=== PATIENT | female | born 1990 | race African-American/Black ===

== ENCOUNTER 2016-09-07 17:57 | Emergency (ER) | payer OTHER, MEDICAID ==
[~2016-09-07 17:57] MED LIST: AMOX875T PO; CIPR500T4 PO; FERR325T PO; IBUP-232 PO; IPRA0.03; LORTA5 PO; PRENCAP6 PO; STOO100C PO; ZOFR4TAB3 SL
[2016-09-07] MEDS ORDERED: ACETAMINOPHEN 325 MG TAB PO ONE (19:30)
--- NOTE | 2016-09-07 19:37 | PD ---
HPI Travel History International Travel<30 Days: No Contact w/Intl Traveler<30Days: No Known Affected Area: No History of Present Illness HPI This patient is a 26-year-old 1 para 0 EDC is September 16, 2016 presently at 38 weeks and 5 days she presents with the chief complaint of pain that originates in her left low back and radiates down her left leg described as pressure it began yesterday and from about 3-5 today's has increased and been constant she states that she's had the pain before and it comes and goes her abdomen occasionally gets tight no rupture of membranes no vaginal bleeding resting makes it better standing makes it worse care with Dr. Wil Schaffer course is significant for a history of trichomonas nausea and vomiting throughout the one-hour Glucola test previous bronchitis and a history of a blood transfusion History Past Medical History Narrative Medical Patient is allergic to Tegaderm and foam no known drug allergies Obstetric History Obstetric History First Past Surgical History Surgical History: No Previous Surgery Family History Family History: Negative Social History Alcohol Use: No Tobacco Use: No Substance Abuse: No Allergies-Medications (Allergen,Severity, Reaction): Uncoded Allergies: FOAM IV TEGRADERM (Allergy, Severe, ITCHING/REDNESS, 11/21/11) Home Meds Active Scripts Amoxicillin (Trimox 875 Mg Tab)875 Mg [id number] Mg PO Q12 10 Days Prov:Viridiana Glez 05/05/16 Ipratropium [place] (Nasal) (Ipratropium [place])0.03 % Spr2 [place] NA TID PRN ( NASAL CONGESTION) #1 SPR EACH NOSTRIL Prov:Viridiana Glez 05/05/16 Ciprofloxacin Hcl (Cipro)500 Mg Jce566 Mg PO BID #14 TAB Prov:Ebony Boyce MD 09/19/14 Ondansetron (Zofran ODT)4 Mg Tab4 Mg SL QID PRN (NAUSEA OR VOMITING) #4 TAB FOR NAUSEA/VOMITING Prov:Ebony Boyce MD 09/19/14 Ibuprofen (Motrin)600 Mg [id number] Mg PO QID #21 TAB GIVE WITH FOOD Prov:Ebony Boyce MD 09/19/14 Hydrocodone/Acetaminophen 5 mg/325 mg 1 Tab1 Tab PO Q6H PRN (PAIN) #15 TAB Prov:Soontharothai,Rewadee MD 09/19/14 Reported Medications Ferrous Sulfate (Iron)325 Mg [id number] Mg PO BID 05/05/16 Docusate Sodium (Colace)100 Mg Zwy279 Mg PO DAILY 05/05/16 Mv & Min W/Fe Fumarat ( 1) Cap1 Cap PO DAILY 05/05/16 Review of Systems Musculoskeletal: Other (as per history of present illness) Physical Exam Narrative GENERAL: Well-nourished, well-developed patient. Alert oriented 3 and cooperative in mild distress secondary to low back pain SKIN: Warm and dry. HEAD: Normocephalic and atraumatic. EYES: No scleral icterus. No injection or drainage. Conjunctiva are pink ENT: No nasal drainage noted. Mucous membranes pink. Airway patent. Mucous membranes are moist CARDIOVASCULAR: Regular rate and rhythm without murmurs, gallops, or rubs. RESPIRATORY: Breath sounds equal bilaterally. No accessory muscle use. ABDOMEN/GI: Abdomen soft, non-tender, bowel sounds present, no rebound, no guarding gravid consistent with 38 weeks no palpable contractions Gravid to [-] weeks size 38 Fundal Height: [-] GENITOURINARY: External Genitalia: intact and normal in appearance BUS glands: [-] Cervix: [-] Posterior soft Dilatation: [-] Fingertip Effacement: [-] Long Station: [-] Ballotable Presentation: [-] Vertex Membranes: [intact or ruptured] Uterine Contractions: [-] FHT's: Category: [-] 1 Baseline: [-] 140 Reactive: [-] Positive with accelerations up to 160 Variability: [-] Moderate nirk-lz-efyh variability Decels: [-] 0 EXTREMITIES: No cyanosis or edema. 2+ reflexes NEUROLOGICAL: Awake and alert. Motor and sensory grossly within normal limits. Five out of 5 muscle strength in all muscle groups. Normal speech. Equal strength bilaterally Data Data Vital Signs Reviewed: Yes (blood pressure 117/68 pulse 93 respiration 18 she is afebrile) Labs Bedside biophysical profile is done the amniotic fluid index is 12.8 Anterior grade 3 placenta Positive sustained breathing Positive flexion Positive tone Category 1 reactive tracing 10 out of 10 biophysical profile MDM Medical Record Reviewed: Yes Interpretation(s) 26-year-old at 38 weeks and 5 days Not in labor Musculoskeletal pain most likely pressure on the sciatic nerve by the vertex Plan Patient has been monitored she has a category 1 tracing Bedside ultrasound demonstrates a 10 out of 10 biophysical profile Neurologic exam is normal Plain Tylenol 6 50 Milligrams single dose Discharge patient home to keep her appointment with Dr. Pedroza on Friday Breasts elevated legs by mouth fluid hydration kick counts Signs of labor reviewed Diagnosis Diagnosis: Primary Impression: Musculoskeletal pain Additional Impression: with 38 completed weeks gestation Disposition: DISCHARGE HOME Condition: Stable Patient Instructions: General Instructions, Early Labor Signs (ED), Movement (ED), Abdominal Pain in (ED) Additional Instructions: DRINK PLENTY OF WATER DURING DAY, RETURN IF HAVING STRONG CONTRACTIONS, LEAKING FLUID, VAGINAL BLEEDING OR DECREASE IN BABY MOVING. FOLLOW UP WITH YOUR OB DR ON FRIDAY. KEEP ALL UPCOMING OB APPTS. Jeanine Larson MD Sep 07, 2016 19:37
== END 2016-09-07 19:38 | disposition home or self-care (01) ==
LOC: HOBED 17:57
DX: O26.893 Other specified pregnancy related conditions, third trimester (principal); M79.1 Myalgia; Z3A.33 33 weeks gestation of pregnancy
CPT/HCPCS: 59025; 76815

== ENCOUNTER 2016-09-09 22:37 | Emergency (ER) | payer OTHER, MEDICAID ==
--- NOTE | 2016-09-09 23:05 | PD ---
HPI Chief Complaint back pain Date Seen: Sep 09, 2016 Time Seen: 23:00 Travel History International Travel<30 Days: No Contact w/Intl Traveler<30Days: No Known Affected Area: No History of Present Illness HPI 26yo female at 39 weeks gestation here for left lumbar back pain x 1week. Was seen 2 days ago with similar complaints. Took tylenol earlier today without relief. Has appt tomorrow with OB. Denies contractions, vag bleeding, vag discharge. Para: 0 : 1 History Past Medical History Medical History: Denies Significant Hx Past Surgical History Surgical History: No Previous Surgery Family History Family History: Negative Social History Alcohol Use: No Tobacco Use: No Substance Abuse: No Allergies-Medications (Allergen,Severity, Reaction): Uncoded Allergies: FOAM IV TEGRADERM (Allergy, Severe, ITCHING/REDNESS, 11/21/11) Home Meds Active Scripts Amoxicillin (Trimox 875 Mg Tab)875 Mg [id number] Mg PO Q12 10 Days Prov:Viridiana Glez 05/05/16 Ipratropium [place] (Nasal) (Ipratropium [place])0.03 % Spr2 [place] NA TID PRN ( NASAL CONGESTION) #1 SPR EACH NOSTRIL Prov:Viridiana Glez 05/05/16 Ciprofloxacin Hcl (Cipro)500 Mg Nna700 Mg PO BID #14 TAB Prov:Ebony Boyce MD 09/19/14 Ondansetron (Zofran ODT)4 Mg Tab4 Mg SL QID PRN (NAUSEA OR VOMITING) #4 TAB FOR NAUSEA/VOMITING Prov:Ebony Boyce MD 09/19/14 Ibuprofen (Motrin)600 Mg Hob891 Mg PO QID #21 TAB GIVE WITH FOOD Prov:Ebony Boyce MD 09/19/14 Hydrocodone/Acetaminophen 5 mg/325 mg 1 Tab1 Tab PO Q6H PRN (PAIN) #15 TAB Prov:Ebony Boyce MD 09/19/14 Reported Medications Ferrous Sulfate (Iron)325 Mg Arm448 Mg PO BID 05/05/16 Docusate Sodium (Colace)100 Mg Zto907 Mg PO DAILY 05/05/16 Mv & Min W/Fe Fumarat ( 1) Cap1 Cap PO DAILY 05/05/16 Review of Systems Except as stated in HPI: all other systems reviewed are Neg Physical Exam Narrative GENERAL: Well-nourished, well-developed patient. SKIN: Warm and dry. HEAD: Normocephalic and atraumatic. EYES: No scleral icterus. No injection or drainage. ENT: No nasal drainage noted. Mucous membranes pink. Airway patent. NECK: Supple, trachea midline. No JVD. CARDIOVASCULAR: Regular rate and rhythm without murmurs, gallops, or rubs. RESPIRATORY: Breath sounds equal bilaterally. No accessory muscle use. BREASTS: Bilateral exam showed no masses , no retractions, no nipple discharge. ABDOMEN/GI: Abdomen soft, non-tender, bowel sounds present, no rebound, no guarding Gravid to [-] weeks size Fundal Height: [-]37 GENITOURINARY: External Genitalia: intact and normal in appearance BUS glands: [-]nl Cervix: [-]posterior Dilatation: [-] fingertip Effacement: [-] 50 Station: [-] -3 Presentation: [-]vertex Membranes: [intact or ruptured]intact Uterine Contractions: [-] no contractions per toco FHT's: Category: [-] 1 Baseline: [-] 140 Reactive: [-] mod Variability: [-] mod, accels present Decels: [-] absent EXTREMITIES: No cyanosis or edema. BACK: Nontender without obvious deformity. No CVA tenderness. NEUROLOGICAL: Awake and alert. Motor and sensory grossly within normal limits. Five out of 5 muscle strength in all muscle groups. Normal speech. Data Data Vital Signs Reviewed: Yes MDM Plan Will give Vistaril, discussed support belt follow up with OB as scheduled Diagnosis Diagnosis: Primary Impression: Musculoskeletal pain Additional Impression: 39 weeks gestation of Disposition: DISCHARGE HOME Ama Matute MD Sep 09, 2016 23:05
== END 2016-09-09 23:40 | disposition home or self-care (01) ==
LOC: HOBED 22:37
DX: O26.93 Pregnancy related conditions, unspecified, third trimester (principal); M79.1 Myalgia; Z3A.39 39 weeks gestation of pregnancy
CPT/HCPCS: 59025

== ENCOUNTER 2016-09-20 00:56 | Emergency (ER) | payer OTHER, MEDICAID ==
[~2016-09-20 00:56] MED LIST changes: -OXYC1TAB63 PO
[2016-09-20] MEDS ORDERED: PROMETHAZINE INJ 25 MG/ML VIAL IM ONE (01:30)
[2016-09-20] MEDS ORDERED: MEPERIDINE HCL 50 MG/ML VIAL IM ONE (01:30)
--- NOTE | 2016-09-20 01:30 | PD ---
HPI Chief Complaint Contraction pain Date Seen: Sep 20, 2016 Travel History International Travel<30 Days: No Contact w/Intl Traveler<30Days: No Known Affected Area: No History of Present Illness HPI Patient is 26-year-old black female at 40 weeks gestation [address] by [address] Schaffer for care who presents combining of contraction pains that are worsening today. Denies bleeding or rupture the membranes. Baby is active heart rate tracing is reactive and she is tonie every 2-3 minutes. Para: 0 : 1 History Past Surgical History Surgical History: No Previous Surgery Social History Alcohol Use: No Tobacco Use: No Substance Abuse: No Allergies-Medications (Allergen,Severity, Reaction): Uncoded Allergies: FOAM IV TEGRADERM (Allergy, Severe, ITCHING/REDNESS, 11/21/11) Home Meds Active Scripts Amoxicillin (Trimox 875 Mg Tab)875 Mg Qfj384 Mg PO Q12 10 Days Prov:Viridiana Glez 05/05/16 Ipratropium [place] (Nasal) (Ipratropium [place])0.03 % Spr2 [place] NA TID PRN ( NASAL CONGESTION) #1 SPR EACH NOSTRIL Prov:Viridiana Glez 05/05/16 Ciprofloxacin Hcl (Cipro)500 Mg Kzt325 Mg PO BID #14 TAB Prov:Ebony Boyce MD 09/19/14 Ondansetron (Zofran ODT)4 Mg Tab4 Mg SL QID PRN (NAUSEA OR VOMITING) #4 TAB FOR NAUSEA/VOMITING Prov:Ebony Boyce MD 09/19/14 Ibuprofen (Motrin)600 Mg Ysi869 Mg PO QID #21 TAB GIVE WITH FOOD Prov:Ebony Boyce MD 09/19/14 Hydrocodone/Acetaminophen 5 mg/325 mg 1 Tab1 Tab PO Q6H PRN (PAIN) #15 TAB Prov:Ebony Boyce MD 09/19/14 Reported Medications Ferrous Sulfate (Iron)325 Mg Dyj510 Mg PO BID 05/05/16 Docusate Sodium (Colace)100 Mg Cmt878 Mg PO DAILY 05/05/16 Mv & Min W/Fe Fumarat ( 1) Cap1 Cap PO DAILY 05/05/16 Review of Systems General / Constitutional: No: Fever, Weight Gain, Chills, Other Eyes: No: Diploplia, Blurred Vision, Visual changes, Pain, Photophobia HENT: No: Headaches, Vertigo, Lightheadedness Cardiovascular: No: Irregular Rhythm, Chest Pain or Discomfort, Palpitations, Tachycardia, Syncope, Varicosities, Edema, Cyanosis Respiratory: No: Cough, Short of Breath, Other Gastrointestinal: Abdominal Pain, No: Nausea, Vomiting, Diarrhea Genitourinary: No: Decreased Urinary Output, Oliguria Musculoskeletal: No: Limited ROM, Weakness, Cramping, Edema, Pain Skin: No Rash, No Itching, No Dryness, No Lumps, No Change in Pigmentation, No Change in Nails, No Alopecia, No Lesions Neurologic: No: Weakness, Dizziness, Syncope, Focal Abnormalities, Coordination Problem, Headache, Slurred Speech, Seizures Psychiatric: No: Depression, Suicidal Ideations, Homicidal Ideation Endocrine: No: Heat Intolerance, Cold Intolerance, Polydipsia, Polyuria, Other Physical Exam Narrative GENERAL: Well-nourished, well-developed patient. SKIN: Warm and dry. HEAD: Normocephalic and atraumatic. EYES: No scleral icterus. No injection or drainage. ENT: No nasal drainage noted. Mucous membranes pink. Airway patent. NECK: Supple, trachea midline. No JVD. CARDIOVASCULAR: Regular rate and rhythm without murmurs, gallops, or rubs. RESPIRATORY: Breath sounds equal bilaterally. No accessory muscle use. BREASTS: Bilateral exam showed no masses , no retractions, no nipple discharge. ABDOMEN/GI: Abdomen soft, non-tender, bowel sounds present, no rebound, no guarding Gravid to [40-] weeks size Fundal Height: [40-] GENITOURINARY: External Genitalia: intact and normal in appearance BUS glands: [-] Cervix: [-] Dilatation: [-1] Effacement: [60-] Station: [-3] Presentation: [-vtx] Membranes: [intact ] Uterine Contractions: [-q 3 min] FHT's: Category: [-1] Baseline: [133-] Reactive: [yes-] Variability: [-mod] Decels: [-none] EXTREMITIES: No cyanosis or edema. BACK: Nontender without obvious deformity. No CVA tenderness. NEUROLOGICAL: Awake and alert. Motor and sensory grossly within normal limits. Five out of 5 muscle strength in all muscle groups. Normal speech. [facility] Medical Record Reviewed: No Interpretation(s) This patient is 26-year-old black female at 40 weeks gestation presents clinically contractions. Denies bleeding or rupture the membranes baby's active heart rate tracing is reactive and she is tonie every 2-3 minutes. However cervix is only 1 cm 60% -3 station at this point. And this apparently is no change in her cervix over the last several exam she's had. Patient is currently not in labor and will treat with sedation and pain medication for Demerol 50 mg Phenergan 25 mg IM and the allow her to go home to [facility] home after pain medications are given, she is to return for increasing pain ruptured membranes or significant bleeding. She did have some spotting after her check of the cervix and sensory and she was informed that she may have a little bit of spotting when she wiped or went to the bathroom. Diagnosis Diagnosis: Primary Impression: False labor after 37 weeks of gestation without delivery Disposition: 01 DISCHARGE HOME Condition: Stable Cirilo Draper II, MD Sep 20, 2016 01:30
--- NOTE | 2016-09-20 01:50 | PD ---
HPI Chief Complaint 0130 Date Seen: Sep 20, 2016 Travel History International Travel<30 Days: No Contact w/Intl Traveler<30Days: No Known Affected Area: No History of Present Illness HPI Ms. Kay is a 26 yo G1 at 40 4/7 week (09/16/2016) patient of Dr. Schaffer who presents with complaint of contractions and possible rupture of membranes. Patient states that contractions began this morning negative gradually became more painful and become more close together. Patient reports normal movement. Patient does not report obvious ROM. Some vaginal spotting present in association with contractions; no vaginal bleeding reported. Patient reports constant back pain late during , but no recent increase. No shortness of breath, chest pain, nausea/vomiting, dysuria. Patient denies any complications this . Patient reportedly GBS negative. Patient reports recent cervical check with cervical dilation of 2 cm. Patient states that she has talked with her OB regarding possible induction 09/22 if she does not initiate labor spontaneously. Review of records: Prior transfusion in need for iron supplementation but hemoglobin WNL as of 01/2016. History of Trichomonas; subsequently negative after treatment. Records otherwise unremarkable. Para: 0 : 1 History Past Medical History Narrative Medical Per OB records: Trichomonas infection; repeat testing negative 05/2016 Blood transfusion for anemia several years prior; patient does not know reason for her transfusion Medical History: Denies Significant Hx Obstetric History Obstetric History G1 Past Surgical History Surgical History: No Previous Surgery Family History Family History: Negative Social History Alcohol Use: No Tobacco Use: No Substance Abuse: No Allergies-Medications (Allergen,Severity, Reaction): Uncoded Allergies: FOAM IV TEGRADERM (Allergy, Severe, ITCHING/REDNESS, 11/21/11) Home Meds Active Scripts Amoxicillin (Trimox 875 Mg Tab)875 Mg Aji490 Mg PO Q12 10 Days Prov:Viridiana Glez 05/05/16 Ipratropium [place] (Nasal) (Ipratropium [place])0.03 % Spr2 [place] NA TID PRN ( NASAL CONGESTION) #1 SPR EACH NOSTRIL Prov:Viridiana Glez 05/05/16 Ciprofloxacin Hcl (Cipro)500 Mg Iei162 Mg PO BID #14 TAB Prov:Ebony Boyce MD 09/19/14 Ondansetron (Zofran ODT)4 Mg Tab4 Mg SL QID PRN (NAUSEA OR VOMITING) #4 TAB FOR NAUSEA/VOMITING Prov:Ebony Boyce MD 09/19/14 Ibuprofen (Motrin)600 Mg Lrg132 Mg PO QID #21 TAB GIVE WITH FOOD Prov:Ebony Boyce MD 09/19/14 Hydrocodone/Acetaminophen 5 mg/325 mg 1 Tab1 Tab PO Q6H PRN (PAIN) #15 TAB Prov:Ebony Boyce MD 09/19/14 Reported Medications Ferrous Sulfate (Iron)325 Mg Qvo355 Mg PO BID 05/05/16 Docusate Sodium (Colace)100 Mg Hju200 Mg PO DAILY 05/05/16 Mv & Min W/Fe Fumarat ( 1) Cap1 Cap PO DAILY 05/05/16 Review of Systems General / Constitutional: No: Fever, Chills Eyes: No: Blurred Vision Cardiovascular: No: Chest Pain or Discomfort Respiratory: No: Short of Breath Gastrointestinal: No: Nausea, Vomiting Genitourinary: No: Urgency, Dysuria Musculoskeletal: Pain (abdominal pain with contractions) Physical Exam Narrative GENERAL: Well-nourished, well-developed patient. SKIN: Warm and dry. HEAD: Normocephalic and atraumatic. EYES: No scleral icterus. No injection or drainage. ENT: No nasal drainage noted. Mucous membranes pink. Airway patent. NECK: Supple, trachea midline. No JVD. CARDIOVASCULAR: Regular rate and rhythm without murmurs RESPIRATORY: Breath sounds equal bilaterally. No accessory muscle use. ABDOMEN/GI: Abdomen soft, non-tender, bowel sounds present, no rebound, no guarding Gravid EXTREMITIES: No cyanosis or edema. BACK: Nontender without obvious deformity. No CVA tenderness. NEUROLOGICAL: Awake and alert. Motor and sensory function grossly within normal limits. GENITOURINARY: Performed by Dr. Draper External Genitalia: intact and normal in appearance Cervix: Dilatation:1 Effacement: 60% Station: -3 Membranes: Intact Uterine Contractions: Y q3min FHT's: Category: 1 Baseline: 130 Reactive: Y Variability: Moderate Decels: None Data Data Vital Signs Reviewed: Yes Orders Vital Signs (Adult) .ON ADMISSION (09/20/16 01:23) ^ Labor Status (09/20/16 01:23) Promethazine Inj (Phenergan Inj) (09/20/16 01:30) Meperidine Inj (Demerol Inj) (09/20/16 01:30) MDM Medical Record Reviewed: Yes Narrative Course / MDM Ms. Kay is a 26 yo G1 at 40 4/7 week (09/16/2016) Assessment: Category 1 rhythm Contractions q 2-3 minutes Cervix 60/-3 Suspect early latent labor Plan: -Will give Demerol 50mg IM -Will give Phenergan 25mg IM -Will discharge patient home during latent labor; patient to return to OB ED with ROM or any significant bleeding Diagnosis Diagnosis: Primary Impression: False labor after 37 weeks of gestation without delivery Disposition: 01 DISCHARGE HOME Condition: Stable Patient Instructions: General Instructions, Early Labor Signs (ED), Movement (ED), Abdominal Pain in (ED) Departure Forms: Tests/Procedures Mika Smart MD R2 Sep 20, 2016 01:50
== END 2016-09-20 01:58 | disposition home or self-care (01) ==
LOC: HOBED 00:56
DX: O47.1 False labor at or after 37 completed weeks of gestation (principal); Z3A.40 40 weeks gestation of pregnancy
CPT/HCPCS: 59025; 84112; 96372; J2175; J2550

== ENCOUNTER 2016-09-20 18:01 | Inpatient (IN) | payer MEDICAID, OTHER ==
[2016-09-20] VITALS (36 sets, daily range): BP systolic 82–138; BP diastolic 34–112; PULSE 75–161; RESP 18
[2016-09-20] MEDS ORDERED: LACTATED RINGER'S 1000 ML INJ 1,000 ML IV PRN (19:01)
[2016-09-20] MEDS: LACTATED RINGER'S 1000 ML INJ 1,000 ML IV SCH (19:01)
[2016-09-20] MEDS ORDERED: MINERAL OIL 10 ML VIAL TOPICAL PRN (19:15)
[2016-09-20] MEDS ORDERED: LIDOCAINE HCL 1% 50 ML VIAL I-DERMAL PRN (19:15)
[2016-09-20] MEDS ORDERED: OXYTOCIN 30 UNITS-500ML PREMIX 500 ML IV ONE (19:15)
[2016-09-20] MEDS ORDERED: SODIUM CHLOR 0.9% 1000 ML INJ 1,000 ML IV PRN ×2 (19:15→19:21)
[2016-09-20] MEDS ORDERED: ZOLPIDEM TARTRATE 5 MG TAB PO PRN ×2 (19:15→21:00)
[2016-09-20] MEDS ORDERED: SODIUM CHLORID 0.9% 500 ML INJ 500 ML IV PRN (19:15)
[2016-09-20] MEDS ORDERED: CITRIC ACID-SODIUM CITRATE LIQ 30 ML UDC PO SCH (19:15)
[2016-09-20] MEDS ORDERED: LIDOCAINE HCL 1% 50 ML VIAL INFIL PRN (19:15)
[2016-09-20 19:19] LABS: AUTOMATED NEUTROPHIL # 8.4 TH/MM3 (1.8-7.7); BASOPHIL % 0.2 % (0.0-2.0); EOSINOPHIL # 0.1 TH/MM3 (0-0.4); EOSINOPHIL % 0.9 % (0.0-4.0); HEMATOCRIT 35.2 % (35.0-46.0); HEMO FLAGS DIFF FINAL; LYMPH % 14.7 % (9.0-44.0); LYMPHOCYTE # 1.6 TH/MM3 (1.0-4.8); MEAN CELL VOLUME 94.3 FL (80.0-100.0); MEAN CORPUSCULAR HEMOGLOBIN 31.3 PG (27.0-34.0); MEAN CORPUSCULAR HGB CONC 33.2 % (32.0-36.0); MONO % 7.3 % (0.0-8.0); NEUT % 76.9 % (16.0-70.0); PLATELET COUNT 310 TH/MM3 (150-450); RED BLOOD COUNT 3.73 MIL/MM3 (4.00-5.30); RED CELL DISTRIBUTION WIDTH 13.3 % (11.6-17.2); WHITE BLOOD COUNT 10.9 TH/MM3 (4.0-11.0)
[2016-09-20 19:25] LABS: BACTERIA, URINE OCC /hpf; BLOOD, URINE NEG (NEG); COMMENT (UR) CULTURE INDICATED; CULTURE IF INDICATED CULTURE INDICATED; GLUCOSE,URINE NEG (NEG); KETONE, URINE NEG (NEG); MUCUS URINE FEW /lpf (OCC); NITRITE,URINE NEG (NEG); SQUAMOUS EPITHELIAL CELL URINE <1 /hpf (0-5); URINE COLOR YELLOW (YELLW/STRAW)
[2016-09-20] MEDS ORDERED: OXYTOCIN 30 UNITS-500ML PREMIX 500 ML IV PRN (19:45)
[2016-09-20] MEDS: MISOPROSTOL 25 MCG SUPP VAGINAL SCH (20:00)
[2016-09-20] MEDS ORDERED: MISOPROSTOL 100 MCG TAB VAGINAL SCH (20:00)
[2016-09-20] MEDS ORDERED: fentaNYL 2MCG-BUPIV 0.125% INJ 100 ML ONE (20:26)
[2016-09-20] MEDS ORDERED: ePHEDrine/NS 25 MG/5 ML SYR ONE (22:56)
[2016-09-20] MEDS ORDERED: diphenhydrAMINE HCL 50 MG/ML VIAL IV PRN (23:00)
[2016-09-21] VITALS (42 sets, daily range): BP systolic 36–146; BP diastolic 18–88; PULSE 91–147; RESP 18–20; TEMP 98.1–100.8; O2SAT 95–96
[2016-09-21] MEDS: MISOPROSTOL 25 MCG SUPP VAGINAL SCH
[2016-09-21] MEDS: LACTATED RINGER'S 1000 ML INJ 1,000 ML IV SCH ×2 (03:01→07:50)
[2016-09-21] MEDS ORDERED: fentaNYL 2MCG-BUPIV 0.125% INJ 100 ML ONE ×2 (03:03→07:09)
[2016-09-21] MEDS ORDERED: ceFAZolin INJ 1,000 MG VIAL ONE (07:43)
[2016-09-21] MEDS ORDERED: OXYTOCIN 10 UNIT/ML AMP ONE (07:43)
[2016-09-21] MEDS ORDERED: DICLOFENAC SODIUM 37.5 MG/ML VIAL IV PUSH ONE (07:51)
[2016-09-21] MEDS ORDERED: OXYTOCIN 30 UNITS-500ML PREMIX 500 ML IV PRN ×2 (08:00→20:30)
[2016-09-21] MEDS ORDERED: ACETAMINOPHEN 1000 MG/100 ML VIAL IV ONE (08:08)
[2016-09-21] MEDS ORDERED: EPIDURAL-DIPHENHYDRAMINE HCL 50 MG/ML VIAL IV PUSH PRN (08:15)
[2016-09-21] MEDS ORDERED: EPIDURAL-NO SYSTEMIC NARCOTICS XX PRN (08:15)
[2016-09-21] MEDS ORDERED: EPIDURAL-DIPHENHYDRAMINE HCL 50 MG CAP PO PRN (08:15)
[2016-09-21] MEDS ORDERED: EPIDURAL-NALOXONE HCL 0.4 MG/ML AMP IV PRN (08:15)
[2016-09-21] MEDS ORDERED: EPIDURAL-DO NOT ADMINISTER ANTICOAGULANTS XX PRN (08:18)
[2016-09-21] MEDS ORDERED: ePHEDrine/NS 25 MG/5 ML SYR IV PRN (09:00)
[2016-09-21] MEDS ORDERED: DO NOT ADMINISTER ANTICOAGULANTS XX PRN (09:00)
[2016-09-21] MEDS: DICLOFENAC SODIUM 37.5 MG/ML VIAL IV PUSH SCH ×2 (09:00→17:00)
[2016-09-21] MEDS ORDERED: fentaNYL 2MCG-BUPIV 0.125% 100 ML EPIDURAL SCH (09:00)
[2016-09-21] MEDS ORDERED: NO SYSTEM NARCOTICS XX PRN (09:00)
[2016-09-21] MEDS ORDERED: MORPHINE SULFATE PF 5 MG/10 ML VIAL ONE (09:51)
[2016-09-21] MEDS ORDERED: ONDANSETRON HCL 4 MG/2 ML VIAL ONE (09:51)
--- NOTE | 2016-09-21 10:17 | MH ---
cc: Lauri GORDON MD DATE OF ADMISSION: 09/20/2016 REASON FOR ADMISSION Intrauterine postdate. HISTORY: Ms. Crowder is a 26-year-old black female para 0-0-0-0 who is at 40 weeks of 11/01 stays, she was measuring large in clinic and we sent her for a ultrasound at the center to be sure we were not having a large baby. The baby turned out to be 6-1/2 pounds. The perinatologist recommended delivery at this time. She was going to be induced on Friday night, however, because of their recommendations we are going to induce her now. She understands the risks and benefits and has agreed to proceed. Her past obstetrics history she is para 0-0-0-0 she does have a history of trichomonas back on 02/09, the most recent Pap smear was in late June and was negative. Her GBS is negative. PAST GYNECOLOGY HISTORY: Her past G[employer]ST[employer] history is negative. PAST MEDICAL HISTORY: Her past medical history is negative. PAST SURGICAL HISTORY: Past surgical history is negative. FAMILY HISTORY: Family history is negative. SOCIAL HISTORY She is single, she does not smoke, drink or take drugs. ALLERGIES TEGADERM MEDICATIONS current medications are Vitamins. REVIEW OF SYSTEMS She does not have any headaches, spots in front of her eyes. She has no shortness of breath or chest pain. She does have abdominal pain from the baby growing so large, she reports good movement. No rupture of membranes or bleeding. PHYSICAL EXAMINATION: IN GENERAL: Her physical exam, well-nourished female who is obviously gravid. VITAL SIGNS: Her blood pressure is 112/59. Her pulse is 96. Her respirations 18. HEAD, EYES, EARS, NOSE, AND THROAT: Normocephalic, atraumatic. NECK: The neck is supple. Trachea is midline. No thyromegaly or adenopathy. CHEST: The chest is clear to auscultation percussion. HEART: Heart has regular rate and rhythm without murmur. The abdomen is gravid. The fundal height is measuring 41. This baby seems a little large to me. The fundus is nontender. Her bladder is nontender. EXTREMITIES: She has mild lower extremity swelling. ASSESSMENT/PLAN Intrauterine at 40-1/2 weeks, for induction. Her cervix is 2 cm's and about 50% effaced. I think that she will be expecting a vaginal delivery. R. MD CALVIN Schofield/knig /8:16 AM /9:29 AM
[2016-09-21] MEDS ORDERED: SODIUM CHLORIDE 0.9% FLUSH 5 ML FLUSH IV PRN (10:30)
[2016-09-21] MEDS ORDERED: OXYTOCIN 30 UNITS-500ML PREMIX 500 ML IV ONE ×2 (10:30)
[2016-09-21] MEDS ORDERED: SIMETHICONE 80 MG CHEWABLE TAB PO PRN (10:30)
[2016-09-21] MEDS ORDERED: ONDANSETRON HCL 4 MG/2 ML VIAL IV PUSH PRN (10:30)
[2016-09-21] MEDS ORDERED: oxyCODONE/ACETAMINOPHEN 5 MG/325 MG TAB PO PRN (10:30)
[2016-09-21] MEDS ORDERED: LACTATED RINGER'S 1000 ML INJ 1,000 ML IV SCH (15:26)
[2016-09-21] MEDS ORDERED: ZOLPIDEM TARTRATE 5 MG TAB PO PRN (21:00)
--- NOTE | 2016-09-21 21:47 | MP ---
cc: Lauri SCHAFFER MD DATE OF SURGERY 09/21/16 PREOPERATIVE DIAGNOSIS 1. Intrauterine at 40 1/2 weeks 2. Failure to progress 3. Non-reassuring strip 4. Probable chorioamnionitis POSTOPERATIVE DIAGNOSIS 1. Intrauterine at 40 1/2 weeks 2. Failure to progress 3. Non-reassuring strip 4. Probable chorioamnionitis PROCEDURE Primary low transverse section. ANESTHESIA Epidural SURGEON Lauri Schaffer MD FINDINGS A normal male . Weight was 7-10 and good Apgars. The tubes, the uterus and the ovaries were all normal. COMPLICATIONS None. COUNTS Correct. ESTIMATED BLOOD LOSS 600 mL FLUIDS Crystalloid DISPOSITION The patient tolerated the procedure well, went to recovery room in good condition. INDICATIONS FOR PROCEDURE This patient was being induced last night per perinatology because of variable decelerations even though she had a good biophysical profile. She was 40-1/2 weeks. We proceeded with a Cytotec last night and began Pitocin this morning. She continued to have some variables, but she was not moving her cervix. She spiked a fever of 101.2 and, at this point because of the combination of failure to progress and fever, we decided to proceed with a section. PROCEDURE IN DETAIL Under an adequate level of anesthesia, she was prepped and draped for abdominal surgery. A Pfannenstiel incision was made and carried down to the fascia. The fascia was taken off the rectus muscle by blunt and sharp dissection. The rectus muscles were spread bluntly and the peritoneum was entered under direct vision without difficulty. The incision was extended with care to avoid the urinary bladder. A bladder blade was placed and a bladder flap created in the usual fashion. The uterine incision was made in a transverse manner along the lower uterine segment which was now well-developed. It was taken down in the midline until the intrauterine cavity was entered. A large amount of clear fluid was noted. The vertex was grasped with a suction cup and delivered. The hypopharynx and nasopharynx were suctioned and the remainder of the infant delivered without difficulty. The cord was doubly clamped and cut and the infant handed to the resuscitation team present. The placenta was then delivered manually. The uterus was curettaged twice with a wet lap and irrigated with a large amount of fluid. The uterine incision was then repaired with 2-0 Vicryl in a running locking fashion, with the second layer imbricating the first. Hemostasis was excellent. The cul-de-sac and gutters were cleaned of blood and debris. The uterus was delivered back into the abdomen. The rectus muscles were reapproximated with 0 Vicryl in interrupted fashion. The fascia was repaired from lateral to midline with 0 Vicryl and the subcu was repaired with 3-0 Vicryl. The skin was repaired with a 4-0 Vicryl in a subcuticular manner. The wound was sterilely dressed. She tolerated the procedure well and went to the recovery room in satisfactory condition. R. MD CALVIN Schofield/ /10:29 AM /9:30 PM
[2016-09-21] MEDS: IBUPROFEN 600 MG TAB PO PRN (23:33)
[2016-09-22] MEDS: DICLOFENAC SODIUM 37.5 MG/ML VIAL IV PUSH SCH (00:36)
[2016-09-22 03:00] VITALS: BP 110/65; PULSE 105; RESP 18; TEMP 98.4
[2016-09-22] MEDS: IBUPROFEN 600 MG TAB PO PRN ×3 (06:08→19:54)
[2016-09-22 06:57] LABS: AUTOMATED NEUTROPHIL # 15.5 TH/MM3 (1.8-7.7); BASOPHIL # 0.1 TH/MM3 (0-0.2); BASOPHIL % 0.3 % (0.0-2.0); EOSINOPHIL # 0.1 TH/MM3 (0-0.4); EOSINOPHIL % 0.5 % (0.0-4.0); HEMO FLAGS DIFF FINAL; LYMPH % 10.6 % (9.0-44.0); LYMPHOCYTE # 2.1 TH/MM3 (1.0-4.8); MEAN CELL VOLUME 94.7 FL (80.0-100.0); MEAN CORPUSCULAR HEMOGLOBIN 31.5 PG (27.0-34.0); MEAN CORPUSCULAR HGB CONC 33.3 % (32.0-36.0); MONO % 9.5 % (0.0-8.0); NEUT % 79.1 % (16.0-70.0); PLATELET COUNT 245 TH/MM3 (150-450); RED BLOOD COUNT 2.32 MIL/MM3 (4.00-5.30); RED CELL DISTRIBUTION WIDTH 13.3 % (11.6-17.2); WHITE BLOOD COUNT 19.6 TH/MM3 (4.0-11.0)
[2016-09-22 08:15] VITALS: BP 116/83; PULSE 114; RESP 16; TEMP 98
[2016-09-22] MEDS: oxyCODONE/ACETAMINOPHEN 5 MG/325 MG TAB PO PRN ×3 (13:26→22:33)
[2016-09-22 13:43] VITALS: BP 99/48; PULSE 94; RESP 18
--- NOTE | 2016-09-22 14:22 | HHI.OB ---
Subjective Remarks Doing well, some pain and stressed she needs to take her pain meds Baby is doing well and not on Abs No flatus. Objective Vitals/I&O Vital Signs Date Time Temp Pulse Resp B/P Pulse Ox O2 Delivery O2 Flow Rate FiO2 09/22/16 13:43 94 18 99/48 09/22/16 08:15 98.0 114 16 09/22/16 08:15 116/83 09/22/16 03:00 98.4 105 18 110/65 09/22/16 00:33 18 09/21/16 23:43 98.2 116 18 127/80 09/21/16 20:00 120/83 09/21/16 19:10 98.4 131 18 120/83 Result Diagram: 09/22/16 0541 Objective Remarks GENERAL: Well-nourished, well-developed patient. CARDIOVASCULAR: Regular rate and rhythm without murmurs, gallops, or rubs. RESPIRATORY: Breath sounds equal bilaterally. No accessory muscle use. ABDOMEN/GI: Abdomen soft, non-tender, bowel sounds present. Incision: Clean, dry and intact. Fundus: Firm, non-tender at umbilicus. GENITOURINARY: Light to moderate bleeding. EXTREMITIES: No cyanosis or edema, non-tender, without signs of DVT. Medications and IVs Current Medications Medications (Trade) Dose Ordered Sig/Natividad Route Start Time Stop Time Status Last Admin (NS Flush) 2 ml BID IV 09/21/16 21:00 (NS Flush) 2 ml UNSCH PRN IV 09/21/16 10:30 (Mylicon Chew) 80 mg QID PRN PO 09/21/16 10:30 (Motrin) 600 mg Q6H PRN PO 09/21/16 10:30 09/22/16 13:25 (Percocet 5-325 Mg) 1 tab Q4H PRN PO 09/21/16 10:30 09/22/16 06:08 (Percocet 5-325 Mg) 2 tab Q4H PRN PO 09/21/16 10:30 09/22/16 13:26 (Thi-Colace) 2 tab Q12H PRN PO 09/21/16 10:30 (Ambien) 5 mg HS PRN PO 09/21/16 21:00 (M-M-R Ii Inj) 0.5 ml ONCE ONCE SQ 09/22/16 16:00 09/22/16 16:01 (Boostrix Inj) 0.5 ml ONCE ONCE IM 09/22/16 16:00 09/22/16 16:01 (Zofran Inj) 4 mg Q6H PRN IV PUSH 09/21/16 10:30 Assessment/Plan Problem List: (1) delivery delivered Assessment and Plan POD #1 Severe anemia will consider venofer tomorrow once her WBC come down, Discussed blood transfusion. Will check her CBC in the am Slg dizzy if she gets up too early, no chest pain or SOB Lauri Schaffer MD Sep 22, 2016 14:22
[2016-09-22 14:26] VITALS: BP 105/53; PULSE 115; RESP 18
[2016-09-22] MEDS ORDERED: DIPHTH/TETANUS/ACEL PERTUSSIS (BOOSTER) 0.5 ML VIAL/PFS IM ONE (16:00)
[2016-09-22] MEDS ORDERED: MEASLES, MUMPS, RUBELLA VACCINE 0.5 ML VIAL SQ ONE (16:00)
[2016-09-22] MEDS: DOCUSATE SODIUM 50 MG/SENNA 8.6 MG TAB PO PRN (19:54)
[2016-09-22] MEDS: SODIUM CHLORIDE 0.9% FLUSH 5 ML FLUSH IV SCH (21:00)
[2016-09-23] MEDS: IBUPROFEN 600 MG TAB PO PRN ×4 (02:08→21:23)
[2016-09-23] MEDS: oxyCODONE/ACETAMINOPHEN 5 MG/325 MG TAB PO PRN ×6 (02:09→23:21)
[2016-09-23 06:11] LABS: AUTOMATED NEUTROPHIL # 10.8 TH/MM3 (1.8-7.7); BASOPHIL % 0.3 % (0.0-2.0); EOSINOPHIL # 0.3 TH/MM3 (0-0.4); EOSINOPHIL % 2.1 % (0.0-4.0); HEMATOCRIT 23.3 % (35.0-46.0); LYMPH % 17.3 % (9.0-44.0); LYMPHOCYTE # 2.5 TH/MM3 (1.0-4.8); MEAN CELL VOLUME 95.2 FL (80.0-100.0); MEAN CORPUSCULAR HEMOGLOBIN 31.7 PG (27.0-34.0); MEAN CORPUSCULAR HGB CONC 33.3 % (32.0-36.0); MONO % 6.3 % (0.0-8.0); PLATELET COUNT 323 TH/MM3 (150-450); RED BLOOD COUNT 2.44 MIL/MM3 (4.00-5.30); RED CELL DISTRIBUTION WIDTH 13.3 % (11.6-17.2); WHITE BLOOD COUNT 14.5 TH/MM3 (4.0-11.0)
[2016-09-23 06:13] LABS: HEMO FLAGS AUTO DIFF
[2016-09-23 08:13] LABS: BANDS 8 % (0-6); EOSINOPHILS 1 % (0-4); METAMYELOCYTES 1 % (0-1); MYELOCYTES 1 % (0-0); NEUTROPHIL # MANUAL DIFF 11.7 TH/MM3 (1.8-7.7); POLYS (SEG NEUTROPHILS) 71 % (16-70); WBC DIFF SAMPLE 100
[2016-09-23 08:14] LABS: PLATELET ESTIMATE SMEAR NORMAL (NORMAL); PLATELET MORPHOLOGY NORMAL (NORMAL); SCAN/DIFF FINAL DIFF MANUAL
[2016-09-23] MEDS: DOCUSATE SODIUM 50 MG/SENNA 8.6 MG TAB PO PRN ×2 (08:14→21:23)
--- NOTE | 2016-09-23 09:10 | HHI.OB ---
Subjective Post Operative Day: 2 Objective Vitals/I&O Vital Signs Date Time Temp Pulse Resp B/P Pulse Ox O2 Delivery O2 Flow Rate FiO2 09/22/16 14:26 115 18 105/53 09/22/16 13:43 94 18 99/48 Result Diagram: 09/23/16 0537 Objective Remarks GENERAL: Well-nourished, well-developed patient. CARDIOVASCULAR: Regular rate and rhythm without murmurs, gallops, or rubs. RESPIRATORY: Breath sounds equal bilaterally. No accessory muscle use. ABDOMEN/GI: Abdomen soft, non-tender, bowel sounds present. Incision: Clean, dry and intact. Fundus: Firm, non-tender at umbilicus. GENITOURINARY: Light to moderate bleeding. EXTREMITIES: No cyanosis or edema, non-tender, without signs of DVT. Medications and IVs Current Medications Medications (Trade) Dose Ordered Sig/Natividad Route Start Time Stop Time Status Last Admin (NS Flush) 2 ml BID IV 09/21/16 21:00 (NS Flush) 2 ml UNSCH PRN IV 09/21/16 10:30 (Mylicon Chew) 80 mg QID PRN PO 09/21/16 10:30 (Motrin) 600 mg Q6H PRN PO 09/21/16 10:30 09/23/16 08:14 (Percocet 5-325 Mg) 1 tab Q4H PRN PO 09/21/16 10:30 09/22/16 06:08 (Percocet 5-325 Mg) 2 tab Q4H PRN PO 09/21/16 10:30 09/23/16 06:19 (Thi-Colace) 2 tab Q12H PRN PO 09/21/16 10:30 09/23/16 08:14 (Ambien) 5 mg HS PRN PO 09/21/16 21:00 (Zofran Inj) 4 mg Q6H PRN IV PUSH 09/21/16 10:30 Assessment/Plan Problem List: (1) delivery delivered Plan: routine (2) Severe anemia Plan: treat with iv iron vs transfusion Assessment and Plan POD #2 Severe anemia, Dr Schaffer will be in to see pt pt doing well pain well managed with oral pain medication Discharge Planning consider dc home tomorrow Lucila Brown Sep 23, 2016 09:10
[2016-09-23] MEDS: SODIUM CHLORIDE 0.9% FLUSH 5 ML FLUSH IV SCH (21:00)
[2016-09-24] MEDS: IBUPROFEN 600 MG TAB PO PRN ×3 (04:40→17:55)
[2016-09-24] MEDS: oxyCODONE/ACETAMINOPHEN 5 MG/325 MG TAB PO PRN ×5 (04:41→22:49)
[2016-09-24 08:00] VITALS: BP 110/69; PULSE 96; RESP 20; TEMP 98.4
[2016-09-24] MEDS: DOCUSATE SODIUM 50 MG/SENNA 8.6 MG TAB PO PRN ×2 (08:29→22:51)
[2016-09-24] MEDS: SODIUM CHLORIDE 0.9% FLUSH 5 ML FLUSH IV SCH (09:00)
--- NOTE | 2016-09-24 09:18 | HHI.OB ---
Subjective Post Operative Day: 3 Objective Result Diagram: 09/23/16 0537 Objective Remarks GENERAL: Well-nourished, well-developed patient. CARDIOVASCULAR: Regular rate and rhythm without murmurs, gallops, or rubs. RESPIRATORY: Breath sounds equal bilaterally. No accessory muscle use. ABDOMEN/GI: Abdomen soft, non-tender, bowel sounds present. Incision: Clean, dry and intact. Fundus: Firm, non-tender at umbilicus. GENITOURINARY: Light to moderate bleeding. EXTREMITIES: No cyanosis or edema, non-tender, without signs of DVT. Medications and IVs Current Medications Medications (Trade) Dose Ordered Sig/Natividad Route Start Time Stop Time Status Last Admin (NS Flush) 2 ml BID IV 09/21/16 21:00 (NS Flush) 2 ml UNSCH PRN IV 09/21/16 10:30 (Mylicon Chew) 80 mg QID PRN PO 09/21/16 10:30 (Motrin) 600 mg Q6H PRN PO 09/21/16 10:30 09/24/16 04:40 (Percocet 5-325 Mg) 1 tab Q4H PRN PO 09/21/16 10:30 09/22/16 06:08 (Percocet 5-325 Mg) 2 tab Q4H PRN PO 09/21/16 10:30 09/24/16 08:29 (Thi-Colace) 2 tab Q12H PRN PO 09/21/16 10:30 09/24/16 08:29 (Ambien) 5 mg HS PRN PO 09/21/16 21:00 Ondansetron HCl 4 mg 4 mg Q6H PRN IV PUSH 09/21/16 10:30 (Venofer Inj/NS Inj) 110 ml @ 110 mls/hr Q24H IV 09/24/16 10:00 09/26/16 10:59 Assessment/Plan Problem List: (1) delivery delivered Plan: routine (2) Severe anemia Plan: treat with iv venofer Assessment and Plan POD #3 Severe anemia, pt c/o dizziness, denies sob or chest pain will treat with venofer today and tomorrow pt overwhelmed today, infant sent to nursery to allow her to rest pain well managed with oral pain medication routine post op care Discharge Planning consider dc home tomorrow Lucila BrownP Sep 24, 2016 09:18
[2016-09-24] MEDS ORDERED: IRON SUCROSE INJ 200 MG in SODIUM CHLORIDE 0.9% INJ 100 ML IV SCH (10:00)
[2016-09-24 11:04] LABS: AUTOMATED NEUTROPHIL # 7.2 TH/MM3 (1.8-7.7); BASOPHIL % 0.2 % (0.0-2.0); EOSINOPHIL # 0.3 TH/MM3 (0-0.4); EOSINOPHIL % 2.8 % (0.0-4.0); LYMPH % 19.2 % (9.0-44.0); LYMPHOCYTE # 1.9 TH/MM3 (1.0-4.8); MEAN CELL VOLUME 93.9 FL (80.0-100.0); MEAN CORPUSCULAR HEMOGLOBIN 32.5 PG (27.0-34.0); MEAN CORPUSCULAR HGB CONC 34.6 % (32.0-36.0); MONO % 5.7 % (0.0-8.0); NEUT % 72.1 % (16.0-70.0); PLATELET COUNT 380 TH/MM3 (150-450); RED BLOOD COUNT 2.34 MIL/MM3 (4.00-5.30); RED CELL DISTRIBUTION WIDTH 13.2 % (11.6-17.2); WHITE BLOOD COUNT 9.9 TH/MM3 (4.0-11.0)
[2016-09-24 11:05] LABS: HEMO FLAGS AUTO DIFF
[2016-09-24 11:44] LABS: BANDS 3 % (0-6); BASOPHILS 1 % (0-2); CORRECTED NUCLEATED RBC 1 /100 WBC (0-0); EOSINOPHILS 3 % (0-4); METAMYELOCYTES 1 % (0-1); MYELOCYTES 1 % (0-0); NEUTROPHIL # MANUAL DIFF 7.3 TH/MM3 (1.8-7.7); PLATELET ESTIMATE SMEAR NORMAL (NORMAL); PLATELET MORPHOLOGY ENLARGED (NORMAL); POLYS (SEG NEUTROPHILS) 69 % (16-70); SCAN/DIFF FINAL DIFF MANUAL; WBC DIFF SAMPLE 100
[2016-09-25] MEDS: IBUPROFEN 600 MG TAB PO PRN ×3 (02:52→15:55)
[2016-09-25] MEDS: oxyCODONE/ACETAMINOPHEN 5 MG/325 MG TAB PO PRN ×3 (02:53→15:55)
[2016-09-25] MEDS ORDERED: IBUP-232 PO (08:33)
[2016-09-25] MEDS ORDERED: OXYC1TAB63 PO (08:33)
--- NOTE | 2016-09-25 08:55 | HHI.DCPOC ---
Discharge Care Plan Diagnosis: (1) Severe anemia (2) delivery delivered Your Health Problems Are: delivery Additional Problems TAKE DAILY IRON ONCE YOU ARE NO LONGER TAKING PERCOCET Report Symptoms to Your Doctor -Temperate above 100.5 degrees -Redness, of incision or excessive or foul smelling drainage -Unusual pain or calf pain -Increased vaginal bleeding -Painful or difficulty urinating -Feelings of extreme sadness or anxiety after 2 weeks Goals to Promote Your Health * To prevent worsening of your condition and complications * To maintain your health at the optimal level Directions to Meet Your Goals Take your medications as prescribed Follow your dietary instruction Follow activity as directed Ensure plenty of rest for recovery Drink fluids for hydration Keep your appointments as scheduled Take your immunizations and boosters as scheduled If your symptoms worsen call your PCP, if no PCP go to Urgent Care Center or Emergency Room Smoking is Dangerous to Your Health. Avoid second hand smoke Call the 24-hour crisis hotline for domestic abuse at Lucila Brown Sep 25, 2016 08:54
--- NOTE | 2016-09-25 09:19 | HHI.OB ---
Subjective Post Operative Day: 4 Objective Result Diagram: 09/24/16 1030 Objective Remarks GENERAL: Well-nourished, well-developed patient. CARDIOVASCULAR: Regular rate and rhythm without murmurs, gallops, or rubs. RESPIRATORY: Breath sounds equal bilaterally. No accessory muscle use. ABDOMEN/GI: Abdomen soft, non-tender, bowel sounds present. Incision: Clean, dry and intact. Fundus: Firm, non-tender at umbilicus. GENITOURINARY: Light to moderate bleeding. EXTREMITIES: No cyanosis or edema, non-tender, without signs of DVT. Medications and IVs Current Medications Medications (Trade) Dose Ordered Sig/Natividad Route Start Time Stop Time Status Last Admin (NS Flush) 2 ml BID IV 09/21/16 21:00 09/24/16 09:00 (NS Flush) 2 ml UNSCH PRN IV 09/21/16 10:30 (Mylicon Chew) 80 mg QID PRN PO 09/21/16 10:30 (Motrin) 600 mg Q6H PRN PO 09/21/16 10:30 09/25/16 02:52 (Percocet 5-325 Mg) 1 tab Q4H PRN PO 09/21/16 10:30 09/22/16 06:08 (Percocet 5-325 Mg) 2 tab Q4H PRN PO 09/21/16 10:30 09/25/16 02:53 (Thi-Colace) 2 tab Q12H PRN PO 09/21/16 10:30 09/24/16 22:51 (Ambien) 5 mg HS PRN PO 09/21/16 21:00 09/25/16 03:18 Ondansetron HCl 4 mg 4 mg Q6H PRN IV PUSH 09/21/16 10:30 (Venofer Inj/NS Inj) 110 ml @ 110 mls/hr Q24H IV 09/24/16 10:00 09/26/16 10:59 09/24/16 10:00 Assessment/Plan Problem List: (1) delivery delivered Plan: routine (2) Severe anemia Plan: treat with daily oral iron post Assessment and Plan POD #4 Severe anemia, denies dizziness, sob or chest pain pt feeling better ambulating in the room without difficulty will treat with 2nd dose of venofer today pain well managed with oral pain medication routine post op care Discharge Planning dc home today Lucila Brown Sep 25, 2016 09:19
[2016-09-25] MEDS: DOCUSATE SODIUM 50 MG/SENNA 8.6 MG TAB PO PRN (09:26)
--- NOTE | 2016-09-25 09:40 | HHI.DS ---
Admission Date Sep 20, 2016 at 18:01 Discharge Date: Sep 25, 2016 Admitting Diagnosis 40+ weeks induction Diagnosis: Delivery Date: Sep 21, 2016 : Primary Reason: failure to progress nonreassuring strip possible chorioamnionitis : Male Brief History 40+ week induction failure to progress non reassuring strip possible chorioamnionitis primary c section severe anemia Hospital Course routine post op care venofer for anemia afebrile Pt Condition on Discharge: Good Discharge Disposition: Discharge Home Discharge Instructions Diet Instructions: As Tolerated, No Restrictions Additional Diet Instructions: Drink at least 8 - 16 oz bottles of water a day Activities You Can Perform: Shower Only-No Bath Activities to Avoid: Prolonged Standing, Strenuous Activity, Sexual Activity Additional Activity Instruc.: No driving until off pain medications Do not lift anything heavier than your baby in an infant carrier Follow up Referrals: [employer] [facility] - 1 Week @ [facility] New Medications: Ibuprofen (Ibuprofen) 600 Mg Tab 600 MG PO Q6H Pain Management #30 TAB Oxycodone-Acetaminophen (Oxycodone-Acetaminophen) 5-325 mg Tab 1 TAB PO Q4H Pain Management #30 TAB Continued Medications: Docusate Sodium (Colace) 100 Mg Cap 100 MG PO DAILY CAP Mv & Min W/Fe Fumarat ( 1) Cap 1 CAP PO DAILY CAP Discontinued Medications: Amoxicillin (Trimox 875 Mg Tab) 875 Mg Tab 875 MG PO Q12 Days 10 TAB Ciprofloxacin Hcl (Cipro) 500 Mg Tab 500 MG PO BID #14 TAB Ferrous Sulfate (Iron) 325 Mg Tab 325 MG PO BID TAB Hydrocodone/Acetaminophen 5 mg/325 mg (Hydrocodone/Acetaminophen 5 mg/325 mg) 1 Tab 1 TAB PO Q6H PRN PAIN #15 TAB Ibuprofen (Motrin) 600 Mg Tab 600 MG PO QID GIVE WITH FOOD #21 TAB Ipratropium [place] (Nasal) (Ipratropium [place]) 0.03 % Spr 2 SPRAY NA TID EACH NOSTRIL PRN NASAL CONGESTION #1 SPR Ondansetron (Zofran ODT) 4 Mg Tab 4 MG SL QID FOR NAUSEA/VOMITING PRN NAUSEA OR VOMITING #4 TAB Lucila Brown Sep 25, 2016 09:40
== END 2016-09-25 19:16 | disposition home or self-care (01) | DRG 765 ==
LOC: H2EB 18:01 → H1EA 09-21 10:58
PROVIDERS: ADMIT Obstetrics & Gynecology; ATTEND Obstetrics & Gynecology
PROC: 3E0P7GC Introduction of Other Therapeutic Substance into Female Reproductive, Via Natural or Artificial Opening (ICD-10-PCS; 2016-09-20)
PROC: 3E0S3CZ (ICD-10-PCS; 2016-09-20)
PROC: 00HU33Z Insertion of Infusion Device into Spinal Canal, Percutaneous Approach (ICD-10-PCS; 2016-09-20)
PROC: 10D00Z1 Extraction of Products of Conception, Low, Open Approach (ICD-10-PCS; principal; 2016-09-21)
DX: O48.0 Post-term pregnancy (principal); O41.1230 Chorioamnionitis, third trimester, not applicable or unspecified; Z3A.40 40 weeks gestation of pregnancy; O76 Abnormality in fetal heart rate and rhythm complicating labor and delivery; O62.2 Other uterine inertia; O99.02 Anemia complicating childbirth; R50.9 Fever, unspecified; Z37.0 Single live birth
CPT/HCPCS: 59025; 76816; 76818; 76937; 81001; 84112; 85007; 85025; 85027; 86900; 86901; 87086; 88307; 90715; 96372; J0131; J0690; J1130; J1200; J1756; J2175; J2274; J2405; J2550; J2590; J7120

== ENCOUNTER → 2016-09-20 | Outpatient (CLI) | payer OTHER, MEDICAID ==
[~2016-09-20] MED LIST changes: +OXYC1TAB63 PO
== END ==
LOC: HPND 10:36
PROVIDERS: ATTEND Obstetrics & Gynecology
DX: O36.60X0 Maternal care for excessive fetal growth, unspecified trimester, not applicable or unspecified (principal)
CPT/HCPCS: 76816; 76818

== ENCOUNTER 2016-10-28 22:34 | Observation (INO) | payer MEDICAID, OTHER ==
[~2016-10-28] VITALS: Ht 152.4 cm; Wt 88.0 kg
[~2016-10-28 22:34] MED LIST changes: -AMOX875T PO; -CIPR500T4 PO; -FERR325T PO; -IPRA0.03; -LORTA5 PO; +OXYC1TAB63 PO; -ZOFR4TAB3 SL
[2016-10-28 22:42] VITALS: BP 112/56; PULSE 73; RESP 18; TEMP 97.3; O2SAT 100
[2016-10-28] MEDS ORDERED: MORPHINE SULFATE 4 MG/ML INJ IV PUSH ONE (23:00)
[2016-10-28] MEDS ORDERED: ONDANSETRON HCL 4 MG/2 ML VIAL IVP ONE (23:00)
[2016-10-28] MEDS ORDERED: SODIUM CHLORIDE 0.9% FLUSH 10 ML FLUSH IV FLUSH PRN (23:00)
[2016-10-28] MEDS ORDERED: SODIUM CHLOR 0.9% 1000 ML INJ 1,000 ML IV SCH (23:00)
[2016-10-28 23:27] LABS: AUTOMATED NEUTROPHIL # 10.2 TH/MM3 (1.8-7.7); BASOPHIL % 0.4 % (0.0-2.0); EOSINOPHIL # 0.1 TH/MM3 (0-0.4); HEMATOCRIT 37.1 % (35.0-46.0); HEMO FLAGS DIFF FINAL; LYMPH % 14.6 % (9.0-44.0); LYMPHOCYTE # 1.9 TH/MM3 (1.0-4.8); MEAN CELL VOLUME 86.6 FL (80.0-100.0); MEAN CORPUSCULAR HEMOGLOBIN 28.8 PG (27.0-34.0); MEAN CORPUSCULAR HGB CONC 33.3 % (32.0-36.0); MONO % 4.9 % (0.0-8.0); NEUT % 79.1 % (16.0-70.0); PLATELET COUNT 406 TH/MM3 (150-450); RED BLOOD COUNT 4.28 MIL/MM3 (4.00-5.30); WHITE BLOOD COUNT 12.9 TH/MM3 (4.0-11.0)
[2016-10-28 23:36] LABS: APTT (PATIENT) 31.6 SEC (24.3-30.1)
[2016-10-28 23:42] LABS: ALKALINE PHOSPHATASE 96 U/L (45-117); TOTAL BILIRUBIN ADULT 0.5 MG/DL (0.2-1.0)
--- NOTE | 2016-10-28 23:55 | PD ---
HPI Chief Complaint: Back/ Neck Pain or Injury Time Seen by Provider: 22:49 Travel History International Travel<30 days: No Contact w/Intl Traveler<30days: No Traveled to known affect area: No History of Present Illness HPI 26-year-old female brought in by ambulance from home for evaluation of back pain. The patient reports having mid back pain that started spontaneously while sitting in a chair. Patient describes the pain as burning/sharp, constant , worse with movement and palpation. She denies trauma. She vomited one time en route to the hospital. She is approximate 5 weeks and reports that she had an epidural at that time as well as a . She denies fevers. No urinary symptoms. No IVDU. She reports a similar episode a couple weeks ago that resolved after taking a Percocet and ibuprofen. PFSH Past Medical History Anemia: Yes (requires blood transfusion 2006) Cancer: No Diabetes: No Diminished Hearing: No Psychiatric: No Immunizations Current: No Seizures: No Thyroid Disease: No Ulcer: No ?: Not : 0 Past Surgical History Other Surgery: No Social History Alcohol Use: No Tobacco Use: No Substance Use: No Allergies-Medications (Allergen,Severity, Reaction): Uncoded Allergies: FOAM IV TEGRADERM (Allergy, Severe, ITCHING/REDNESS, 11/21/11) Reported Meds & Prescriptions Reported Meds & Active Scripts Active Oxycodone-Acetaminophen 5-325 mg Tab 1 Tab PO Q4H Review of Systems Except as stated in HPI: all other systems reviewed are Neg Physical Exam Narrative GENERAL: Well-developed, well-nourished, in position, no distress. SKIN: Focused skin assessment warm/dry. No rash. HEAD: Atraumatic. Normocephalic. EYES: Pupils equal and round. No scleral icterus. No injection or drainage. ENT: Mucous membranes pink and moist. NECK: Trachea midline. No JVD. No nuchal rigidity. CARDIOVASCULAR: Regular rate and rhythm. RESPIRATORY: No accessory muscle use. Clear to auscultation. Breath sounds equal bilaterally. GASTROINTESTINAL: Abdomen soft, non-tender, nondistended. MUSCULOSKELETAL: No obvious deformities. No clubbing. No cyanosis. No edema. Diffuse mid back tenderness without obvious deformity. No midline vertebral step-offs. NEUROLOGICAL: Awake and alert. No obvious cranial nerve deficits. Motor grossly within normal limits. Normal speech. No focal deficits. No saddle anesthesia. Normal muscle strength in all 4 extremities. Data Data Last Documented VS Vital Signs Date Time Temp Pulse Resp B/P Pulse Ox O2 Delivery O2 Flow Rate FiO2 10/28/16 22:42 97.3 73 18 112/56 100 Orders Complete Blood Count With Diff (10/28/16 23:00) Comprehensive Metabolic Panel (10/28/16 23:00) Lipase (10/28/16 23:00) Prothrombin Time / Inr (Pt) (10/28/16 23:00) Act Partial Throm Time (Ptt) (10/28/16 23:00) Urinalysis - C+S If Indicated (10/28/16 23:00) Iv Access Insert/Monitor (10/28/16 23:00) Ecg Monitoring (10/28/16:00) Oximetry (10/28/16 23:00) Morphine Inj (Morphine Inj) (10/28/16 23:00) Ondansetron Inj (Zofran Inj) (10/28/16 23:00) Sodium Chlor 0.9% 1000 Ml Inj (Ns 1000 M (10/28/16 23:00) Sodium Chloride 0.9% Flush (Ns Flush) (10/28/16 23:00) Ct Lumb Spine W/O Contrast (10/28/16 ) Ct Thor Spine W/O Contrast (10/28/16 ) Westergren Sedimentation Rate (10/28/16 23:03) C-Reactive Protein (Crp) (10/28/16:17) Morphine Inj (Morphine Inj) (10/29/16 00:15) Sodium Chlor 0.9% 1000 Ml Inj (Ns 1000 M (10/29/16 00:15) Ct Abdomen W/O Iv Contrast (10/29/16 00:05) Sodium Chlor 0.9% 1000 Ml Inj (Ns 1000 M (10/29/16 00:45) Sodium Chlor 0.9% 1000 Ml Inj (Ns 1000 M (10/29/16 00:36) NPO (10/29/16 00:36) Labs Laboratory Tests Test 10/28/16 23:17 White Blood Count 12.9 TH/MM3 Red Blood Count 4.28 MIL/MM3 Hemoglobin 12.3 GM/DL Hematocrit 37.1 % Mean Corpuscular Volume 86.6 FL Mean Corpuscular Hemoglobin 28.8 PG Mean Corpuscular Hemoglobin 33.3 % Concent Red Cell Distribution Width 15.0 % Platelet Count 406 TH/MM3 Mean Platelet Volume 8.9 FL Neutrophils (%) (Auto) 79.1 % Lymphocytes (%) (Auto) 14.6 % Monocytes (%) (Auto) 4.9 % Eosinophils (%) (Auto) 1.0 % Basophils (%) (Auto) 0.4 % Neutrophils # (Auto) 10.2 TH/MM3 Lymphocytes # (Auto) 1.9 TH/MM3 Monocytes # (Auto) 0.6 TH/MM3 Eosinophils # (Auto) 0.1 TH/MM3 Basophils # (Auto) 0.0 TH/MM3 CBC Comment DIFF FINAL Differential Comment Prothrombin Time 11.0 SEC Prothromb Time International 1.0 RATIO Ratio Activated Partial 31.6 SEC Thromboplast Time Erythrocyte Sedimentation Rate 15 mm/hr Sodium Level 138 MEQ/L Potassium Level 4.1 MEQ/L Chloride Level 103 MEQ/L Carbon Dioxide Level 25.8 MEQ/L Anion Gap 9 MEQ/L Blood Urea Nitrogen 9 MG/DL Creatinine 0.53 MG/DL Estimat Glomerular Filtration 167 ML/MIN Rate Random Glucose 100 MG/DL Calcium Level 8.5 MG/DL Total Bilirubin 0.5 MG/DL Aspartate Amino Transf 70 U/L (AST/SGOT) Alanine Aminotransferase 38 U/L (ALT/SGPT) Alkaline Phosphatase 96 U/L C-Reactive Protein 0.80 MG/DL Total Protein 7.7 GM/DL Albumin 3.6 GM/DL Lipase 24905 U/L [facility] Medical Decision Making Medical Screen Exam Complete: Yes Emergency Medical Condition: Yes Differential Diagnosis Musculoskeletal pain, epidural abscess/hematoma, UTI, pyelonephritis, nephrolithiasis Narrative Course Vital signs show heart rate 73, blood pressure 112/56, pulse ox 100% on room air , oral temp of 97.3F. CBC shows WBC 12.9, hemoglobin 12.3, hematocrit 37.1, platelets 406, neutrophils 79%. CMP is essentially unremarkable Lipase is 15,065. CT abdomen pelvis: CONCLUSION: 1. Small bilateral pleural effusions. 2. Mild cardiomegaly. 3. No acute intra-abdominal abnormality. CT thoracic spine: CONCLUSION: 1. Tiny bilateral pleural effusions. Otherwise, unremarkable exam. CT lumbar spine: CONCLUSION: Normal examination. Patient was given 3 L of normal saline IV bolus as well as pain medication with moderate improvement in pain. She was made aware of all findings. She tells me she does not drink alcohol at all. No known history of gallstones or family history of gallbladder disease. She will be admitted for further treatment and evaluation of acute pancreatitis. Case discussed with [facility] hospitalist Dr. Christine. The patient will be admitted to their service under Dr. Herron Diagnosis Primary Impression: Acute pancreatitis Qualified Code: K85.90 - Acute pancreatitis, unspecified complication status, unspecified pancreatitis type Admitting Information Admitting Physician Requests: Admit Richar Holm MD Oct 28, 2016 23:55
--- NOTE | 2016-10-28 23:58 | RADRPT ---
EXAM DATE/TIME: 10/28/2016 23:33 [facility] COMPARISON: No previous studies available for comparison. INDICATIONS : Back pain, 5 weeks post RADIATION DOSE: 24.40 CTDIvol (mGy) ; Combined studies - Thoracic Spine/Lumbar Spine MEDICAL HISTORY : None SURGICAL HISTORY : None. ENCOUNTER: Initial ACUITY: 1 day PAIN SCALE: 10/10 LOCATION: back TECHNIQUE: Volumetric scanning of the lumbar spine was performed. Multiplanar reconstructions in the sagittal, coronal and oblique axial planes were performed. Using automated exposure control and adjustment of the mA and/or kV according to patient size, radiation dose was kept as low as reasonably achievable t o obtain optimal diagnostic quality images. FINDINGS: VERTEBRAE: Normal vertebral body height. ALIGNMENT: No evidence of subluxation. T12-L1: The thecal sac has a normal diameter. No evidence of disc bulge or protrusion. The neural foramina are patent bilaterally. L1-L2: The thecal sac has a normal diameter. No evidence of disc bulge or protrusion. The neural foramina are patent bilaterally. L2-L3: The thecal sac has a normal diameter. No evidence of disc bulge or protrusion. The neural foramina are patent bilaterally. L3-L4: The thecal sac has a normal diameter. No evidence of disc bulge or protrusion. The neural foramina are patent bilaterally. L4-L5: The thecal sac has a normal diameter. No evidence of disc bulge or protrusion. The neural foramina are patent bilaterally. L5-S1: The thecal sac has a normal diameter. No evidence of disc bulge or protrusion. The neural foramina are patent bilaterally. CONCLUSION: Normal examination. Luis A Wilkins Jr., MD on October 28, 2016 at 23:54 Board Certified Radiologist. This report was verified electronically.
[2016-10-29] VITALS (10 sets, daily range): BP systolic 107–132; BP diastolic 57–71; PULSE 55–70; RESP 16–20; TEMP 96.3–98.7; O2SAT 98–100
--- NOTE | 2016-10-29 00:06 | RADRPT ---
EXAM DATE/TIME: 10/28/2016 23:36 [facility] COMPARISON: No previous studies available for comparison. INDICATIONS : Back pain, five weeks post RADIATION DOSE: 24.40 CTDIvol (mGy) ; Combined studies - Thoracic Spine/Lumbar Spine MEDICAL HISTORY : None SURGICAL HISTORY : None. ENCOUNTER: Initial ACUITY: 1 day PAIN SCALE: 10/10 LOCATION: back TECHNIQUE: Volumetric scanning of the thoracic spine was performed. Multiplanar reconstructions in the sagittal , coronal and oblique axial planes were performed. Using automated exposure control and adjustment o f the mA and/or kV according to patient size, radiation dose was kept as low as reasonably achievable to obtain optimal diagnostic quality images. FINDINGS: The vertebral bodies of the thoracic spine are in normal alignment without evidence of subluxation. Vertebral body height is maintained. No fractures are seen. Tiny bilateral pleural effusions. T1-T2: Normal. T2-T3: The thecal sac has a normal diameter. No evidence of disc bulge or protrusion. T3-T4: The thecal sac has a normal diameter. No evidence of disc bulge or protrusion. T4-T5: The thecal sac has a normal diameter. No evidence of disc bulge or protrusion. T5-T6: The thecal sac has a normal diameter. No evidence of disc bulge or protrusion. T6-T7: The thecal sac has a normal diameter. No evidence of disc bulge or protrusion. T7-T8: The thecal sac has a normal diameter. No evidence of disc bulge or protrusion. T8-T9: The thecal sac has a normal diameter. No evidence of disc bulge or protrusion. T9-T10: The thecal sac has a normal diameter. No evidence of disc bulge or protrusion. T10-T11: The thecal sac has a normal diameter. No evidence of disc bulge or protrusion. T11-T12: The thecal sac has a normal diameter. No evidence of disc bulge or protrusion. T12-L1: The thecal sac has a normal diameter. No evidence of disc bulge or protrusion. CONCLUSION: 1. Tiny bilateral pleural effusions. Otherwise, unremarkable exam. Luis A Wilkins Jr., MD on October 29, 2016 at 0:01 Board Certified Radiologist. This report was verified electronically.
[2016-10-29 00:09] LABS: ALT (GPT) 38 U/L (10-53); ANION GAP 9 MEQ/L (5-15); AST (GOT) 70 U/L (15-37); BICARBONATE 25.8 MEQ/L (21.0-32.0); BLOOD UREA NITROGEN 9 MG/DL (7-18); CHLORIDE 103 MEQ/L (98-107); GLOMERULAR FILTRATION RATE 167 ML/MIN (>89); SODIUM (NA) 138 MEQ/L (136-145)
[2016-10-29 00:10] LABS: POTASSIUM 4.1 MEQ/L (3.5-5.1)
[2016-10-29] MEDS ORDERED: SODIUM CHLOR 0.9% 1000 ML INJ 1,000 ML IV ONE ×2 (00:15→00:45)
[2016-10-29] MEDS ORDERED: MORPHINE SULFATE 4 MG/ML INJ IV PUSH ONE (00:15)
--- NOTE | 2016-10-29 00:31 | RADRPT ---
EXAM DATE/TIME: 10/28/2016 23:36 [facility] COMPARISON: No previous studies available for comparison. INDICATIONS : Abdomen pain. Elevated lipase ORAL CONTRAST: No oral contrast ingested. RADIATION DOSE: ; Reconstructed from previous dataset MEDICAL HISTORY : None SURGICAL HISTORY : None. ENCOUNTER: Initial ACUITY: 1 month PAIN SCALE: 6/10 LOCATION: abdomen TECHNIQUE: Volumetric scanning of the abdomen was performed. Using automated exposure control and adjustment of the mA and/or kV according to patient size, radiation dose was kept as low as reasonably achievable to obtain optimal diagnostic quality images. FINDINGS: LOWER LUNGS: Tiny bilateral pleural effusions. The heart is mildly enlarged. No pericardial effusion. LIVER: Homogeneous density without lesion. There is no dilation of the biliary tree. No calcified gallston es. SPLEEN: Normal size without lesion. PANCREAS: Within normal limits. KIDNEYS: Normal in size and shape. There is no mass, stone, or hydronephrosis. ADRENAL GLANDS: Within normal limits. AORTA/RETROPERITONEAL: There is no aneurysm or lymphadenopathy. BOWEL/MESENTERY: The stomach and visualized small and large bowel demonstrate no abnormality. MUSCULOSKELETAL: Within normal limits for patient age. CONCLUSION: 1. Small bilateral pleural effusions. 2. Mild cardiomegaly. 3. No acute intra-abdominal abnormality. Luis A Wilkins Jr., MD on October 29, 2016 at 0:27 Board Certified Radiologist. This report was verified electronically.
[2016-10-29] MEDS ORDERED: SODIUM CHLOR 0.9% 1000 ML INJ 1,000 ML IV SCH (00:36)
[2016-10-29] MEDS ORDERED: MORPHINE SULFATE 4 MG/ML INJ IV PUSH PRN (01:00)
[2016-10-29 01:02] LABS: BLOOD, URINE NEG (NEG); GLUCOSE,URINE NEG (NEG); KETONE, URINE NEG (NEG); MUCUS URINE FEW /lpf (OCC); NITRITE,URINE NEG (NEG); PH, URINE 6.5 (5.0-8.5); SQUAMOUS EPITHELIAL CELL URINE 1 /hpf (0-5); URINE COLOR LIGHT-YELLOW (YELLW/STRAW)
[2016-10-29 01:03] LABS: COMMENT (UR) CULT NOT INDICATED; CULTURE IF INDICATED CULT NOT INDICATED
[2016-10-29 01:24] LABS: HDL CHOLESTEROL 29.6 MG/DL (40.0-60.0)
[2016-10-29] MEDS ORDERED: SODIUM CHLORIDE 0.9% FLUSH 10 ML FLUSH IVF PRN (01:30)
[2016-10-29] MEDS ORDERED: ONDANSETRON HCL 4 MG/2 ML VIAL IV PRN (01:30)
--- NOTE | 2016-10-29 09:57 | RADRPT ---
EXAM DATE/TIME: 10/29/2016 09:01 [facility] COMPARISON: CT ABDOMEN W/O CONTRAST, October 28, 2016, 23:36. INDICATIONS : Right upper quadrant pain. MEDICAL HISTORY : Anemia. Blood transfusion. SURGICAL HISTORY : section. ENCOUNTER: Initial ACUITY: 1 day PAIN SCORE: 0/10 LOCATION: Right upper quadrant MEASUREMENTS: LIVER: 16.6 cm length COMMON DUCT: 4 mm RIGHT KIDNEY: 10.9 x 4.6 x 5.2 cm FINDINGS: LIVER: Normal echotexture without focal lesion or ductal dilatation. COMMON DUCT: No intraluminal mass or stone visualized. GALLBLADDER: Single, subcentimeter mobile stone in the gallbladder lumen. No mural thickening or pe richolecystic fluid PANCREAS: The visualized portions are within normal limits. RIGHT KIDNEY: No evidence of hydronephrosis, stone, or mass. CONCLUSION: 1. Isolated mobile stone in the gallbladder lumen. No mural thickening or pericholecystic fluid. 2. Otherwise negative. Arnaud Curtis MD on October 29, 2016 at 9:52 Board Certified Radiologist. This report was verified electronically.
[2016-10-29] MEDS: SODIUM CHLORIDE 0.9% FLUSH 10 ML FLUSH IV FLUSH SCH ×2 (10:09→21:00)
--- NOTE | 2016-10-29 10:49 | HHI.HP ---
HPI Service CP Hospitalists Primary Care Physician No Primary Care Physician Admission Diagnosis acute pancreatitis Chief Complaint: mid back pain. Travel History International Travel<30 Days: No Contact w/Intl Traveler <30 Da: No Traveled to Known Affected Are: No History of Present Illness Pt is 26 yo post 5 weeks ago. had some midback pain 2 weeks ago that resolved. yesterday had some chicken and rice then c/o mid back pain and then vomited. no fever/chills. denies any etoh intake. no recent viral illnesses. started on prozac 5 days ago. In ED given morphine and CT showed no acute process. Lipase over 15K. admitted for acute pancreatitis. currently no abdomen or back pain. ambulating in room. Review of Systems Other mid back pain. Past Family Social History Past Medical History c section post depression Reported Medications prozac Oxycodone-Acetaminophen 5-325 mg Tab 1 Tab PO Q4H Allergies: Uncoded Allergies: FOAM IV TEGRADERM (Allergy, Severe, ITCHING/REDNESS, 11/21/11) Family History nc Social History no etoh/tob Physical Exam Vital Signs heart reg lung cta abd s/nt/nabs/nd ext no edema Vital Signs Date Time Temp Pulse Resp B/P Pulse Ox O2 Delivery O2 Flow Rate FiO2 10/29/16 08:05 96.3 64 17 120/57 99 10/29/16 04:00 98.7 67 20 110/68 98 10/29/16 03:10 60 16 107/59 98 Room Air 10/28/16 22:42 97.3 73 18 112/56 100 Laboratory Laboratory Tests Test 10/28/16 10/29/16 23:17 00:45 White Blood Count 12.9 Red Blood Count 4.28 Hemoglobin 12.3 Hematocrit 37.1 Mean Corpuscular Volume 86.6 Mean Corpuscular Hemoglobin 28.8 Mean Corpuscular Hemoglobin 33.3 Concent Red Cell Distribution Width 15.0 Platelet Count 406 Mean Platelet Volume 8.9 Neutrophils (%) (Auto) 79.1 Lymphocytes (%) (Auto) 14.6 Monocytes (%) (Auto) 4.9 Eosinophils (%) (Auto) 1.0 Basophils (%) (Auto) 0.4 Neutrophils # (Auto) 10.2 Lymphocytes # (Auto) 1.9 Monocytes # (Auto) 0.6 Eosinophils # (Auto) 0.1 Basophils # (Auto) 0.0 CBC Comment DIFF FINAL Differential Comment Prothrombin Time 11.0 Prothromb Time International 1.0 Ratio Activated Partial 31.6 Thromboplast Time Erythrocyte Sedimentation Rate 15 Sodium Level 138 Potassium Level 4.1 Chloride Level 103 Carbon Dioxide Level 25.8 Anion Gap 9 Blood Urea Nitrogen 9 Creatinine 0.53 Estimat Glomerular Filtration 167 Rate Random Glucose 100 Calcium Level 8.5 Total Bilirubin 0.5 Aspartate Amino Transf 70 (AST/SGOT) Alanine Aminotransferase 38 (ALT/SGPT) Alkaline Phosphatase 96 C-Reactive Protein 0.80 Total Protein 7.7 Albumin 3.6 Triglycerides Level 211 Cholesterol Level 198 LDL Cholesterol Direct 149 HDL Cholesterol 29.6 Cholesterol/HDL Ratio 6.68 Lipase 14910 Urine Color LIGHT-YELLOW Urine Turbidity CLEAR Urine pH 6.5 Urine Specific [place] 1.008 Urine Protein NEG Urine Glucose (UA) NEG Urine Ketones NEG Urine Occult Blood NEG Urine Nitrite NEG Urine Bilirubin NEG Urine Urobilinogen LESS THAN 2.0 Urine Leukocyte Esterase TRACE Urine RBC 1 Urine WBC 3 Urine Squamous Epithelial 1 Cells Urine Mucus FEW Microscopic Urinalysis Comment CULT NOT INDICATED Result Diagram: 10/28/16231610/28/162316 Assessment and Plan Problem List: (1) Acute pancreatitis Status: Acute Plan: Pt is 5 weeks post . presents with mid back pain and lab evidence for acute pancreatitis lipas over 15k. no apparent radiographic evidence of pancreatitis. no cbd dilation and cbd 4mm. no obstruction pattern on LFT. no cholecystitis on exam or CT. u/s showed subcentimeter gallstone in GB. So most likely explanation is passed gallstone/sludge Prozac seems less likely the culprit. no etoh and no severe elevation of triglycerides. ivf advance diet repeat labs decide on d/c later today after dinner. Problem Qualifiers (1) Acute pancreatitis: Qualified Code: K85.90 - Acute pancreatitis, unspecified complication status, unspecified pancreatitis type Luis Armando Herron MD Oct 29, 2016 10:49
[2016-10-29] MEDS: SODIUM CHLOR 0.9% 1000 ML INJ 1,000 ML IV SCH ×2 (11:39→19:07)
[2016-10-29 11:40] LABS: AUTOMATED NEUTROPHIL # 6.4 TH/MM3 (1.8-7.7); BASOPHIL # 0.1 TH/MM3 (0-0.2); BASOPHIL % 0.7 % (0.0-2.0); EOSINOPHIL # 0.2 TH/MM3 (0-0.4); EOSINOPHIL % 1.7 % (0.0-4.0); HEMATOCRIT 39.7 % (35.0-46.0); HEMO FLAGS DIFF FINAL; LYMPH % 25.1 % (9.0-44.0); LYMPHOCYTE # 2.4 TH/MM3 (1.0-4.8); MEAN CELL VOLUME 87.6 FL (80.0-100.0); MEAN CORPUSCULAR HEMOGLOBIN 28.6 PG (27.0-34.0); MEAN CORPUSCULAR HGB CONC 32.6 % (32.0-36.0); MONO % 5.3 % (0.0-8.0); NEUT % 67.2 % (16.0-70.0); PLATELET COUNT 485 TH/MM3 (150-450); RED BLOOD COUNT 4.54 MIL/MM3 (4.00-5.30); WHITE BLOOD COUNT 9.5 TH/MM3 (4.0-11.0)
[2016-10-29 12:03] LABS: INDIRECT BILIRUBIN 0.4 MG/DL (0.0-0.8); TOTAL BILIRUBIN ADULT 0.5 MG/DL (0.2-1.0)
[2016-10-30] VITALS: BP 118/59; PULSE 64; RESP 17; TEMP 98.1; O2SAT 97
[2016-10-30] MEDS: SODIUM CHLOR 0.9% 1000 ML INJ 1,000 ML IV SCH (02:18)
[2016-10-30 04:15] VITALS: BP 110/60; PULSE 64; RESP 16; TEMP 98; O2SAT 99
[2016-10-30 08:00] VITALS: BP 115/56; PULSE 68; RESP 16; TEMP 97.8; O2SAT 98
[2016-10-30] MEDS: SODIUM CHLORIDE 0.9% FLUSH 10 ML FLUSH IV FLUSH SCH (09:00)
--- NOTE | 2016-10-30 09:30 | HHI.PR ---
Subjective Remarks no abdomen or back pain with eating no n/v wants to go home. Objective Vitals heart reg lung cta abd s/nt ext no edema Vital Signs Date Time Temp Pulse Resp B/P Pulse Ox O2 Delivery O2 Flow Rate FiO2 10/30/16 04:15 98.0 64 16 110/60 99 10/30/16 00:00 98.1 64 17 118/59 97 10/29/16 23:24 70 10/29/16 21:00 97.7 62 18 119/57 98 10/29/16 20:24 68 10/29/16 18:29 21 10/29/16 15:50 98.0 61 17 132/71 100 10/29/16 12:22 98 21 10/29/16 12:00 97.0 63 17 116/69 98 10/29/16 09:50 55 10/29/16 10/29/16 10/30/16 15:00 23:00 07:00 Intake Total 480 ml 1000 ml 1000 ml Balance 480 ml 1000 ml 1000 ml Intake Oral 480 ml 1000 ml 1000 ml # Voids 2 1 3 # Bowel Movements 0 0 Result Diagram: 10/29/16 1120 10/28/16 2317 A/P Problem List: (1) Acute pancreatitis Status: Acute Plan: Pt is 5 weeks post . presents with mid back pain and lab evidence for acute pancreatitis lipas over 15k. no apparent radiographic evidence of pancreatitis. no cbd dilation and cbd 4mm. no obstruction pattern on LFT. no cholecystitis on exam or CT. u/s showed subcentimeter gallstone in GB. So most likely explanation is passed gallstone/sludge Prozac seems less likely the culprit. no etoh and no severe elevation of triglycerides. tolerating diet. lipase down to 162 discussed with [facility] gen surg....would be appropriate referral to clinic and offer cholecystectomy...nonemergent...I called pcp who will see her in clinic and make referral. diet discussed with pt. Problem Qualifiers (1) Acute pancreatitis: Qualified Code: K85.90 - Acute pancreatitis, unspecified complication status, unspecified pancreatitis type Luis Armando Herron MD Oct 30, 2016 09:30
--- NOTE | 2016-10-30 09:32 | HHI.DCPOC ---
Discharge Care Plan Diagnosis: (1) Acute pancreatitis (2) Gallstone Goals to Promote Your Health * To prevent worsening of your condition and complications * To maintain your health at the optimal level Directions to Meet Your Goals Take your medications as prescribed Follow your dietary instruction Follow activity as directed Keep your appointments as scheduled Take your immunizations and boosters as scheduled If your symptoms worsen call your PCP, if no PCP go to Urgent Care Center or Emergency Room Smoking is Dangerous to Your Health. Avoid second hand smoke Call the 24-hour hour crisis hotline for domestic abuse at Luis Armando Herron MD Oct 30, 2016 09:31
== END 2016-10-30 12:21 | disposition home or self-care (01) ==
LOC: NEPA 22:34 → INTOOBSV 10-29 00:56 → NEDA 10-29 00:56 → N05B 10-29 04:25
PROVIDERS: ADMIT Hospitalist; ATTEND Hospitalist
DX: M54.9 Dorsalgia, unspecified (principal); K85.90 Acute pancreatitis without necrosis or infection, unspecified; F53 Mental and behavioral disorders associated with the puerperium, not elsewhere classified; Z91.048 Other nonmedicinal substance allergy status; D64.9 Anemia, unspecified
CPT/HCPCS: 72128; 72131; 74150; 76705; 80053; 80076; 81001; 82465; 83690; 83718; 83721; 84478; 85025; 85610; 85652; 85730; 86140; 96374; 96375; 96376; 99285; G0378; J2270; J2405; J7030

== ENCOUNTER 2016-12-29 02:55 | Emergency (ER) | payer MEDICAID ==
[~2016-12-29] VITALS: Ht 154.9 cm; Wt 80.0 kg
[2016-12-29 03:00] VITALS: BP 124/68; PULSE 77; RESP 16; TEMP 98.1; O2SAT 96
[2016-12-29] MEDS ORDERED: SODIUM CHLORIDE 0.9% FLUSH 10 ML FLUSH IV FLUSH PRN (03:45)
[2016-12-29 03:52] VITALS: O2SAT 98
[2016-12-29] MEDS ORDERED: MORPHINE SULFATE 4 MG/ML INJ IV PUSH ONE (04:15)
[2016-12-29] MEDS ORDERED: ONDANSETRON HCL 4 MG/2 ML VIAL IV PUSH ONE (04:15)
[2016-12-29 04:18] LABS: AUTOMATED NEUTROPHIL # 5.4 TH/MM3 (1.8-7.7); BASOPHIL % 0.4 % (0.0-2.0); EOSINOPHIL # 0.2 TH/MM3 (0-0.4); EOSINOPHIL % 2.2 % (0.0-4.0); HEMATOCRIT 34.9 % (35.0-46.0); HEMO FLAGS DIFF FINAL; LYMPH % 31.5 % (9.0-44.0); LYMPHOCYTE # 2.9 TH/MM3 (1.0-4.8); MEAN CELL VOLUME 86.6 FL (80.0-100.0); MEAN CORPUSCULAR HEMOGLOBIN 29.3 PG (27.0-34.0); MEAN CORPUSCULAR HGB CONC 33.9 % (32.0-36.0); MONO % 6.6 % (0.0-8.0); NEUT % 59.3 % (16.0-70.0); PLATELET COUNT 419 TH/MM3 (150-450); RED BLOOD COUNT 4.03 MIL/MM3 (4.00-5.30); WHITE BLOOD COUNT 9.1 TH/MM3 (4.0-11.0)
--- NOTE | 2016-12-29 04:22 | PD ---
HPI . Abdominal pain Chief Complaint: Abdominal Pain Time Seen by Provider: 03:41 Travel History International Travel<30 days: No Contact w/Intl Traveler<30days: No Traveled to known affect area: No History of Present Illness HPI Patient presents with epigastric abdominal pain which radiates through to her back. Onset was at 7 PM. It has been associated with nausea. She states that it feels just like a previous episode of pancreatitis. She reports no exacerbating or relieving factors. Pain is rated as 7/10. PFSH Past Medical History Anemia: Yes (requires blood transfusion 2006) Cancer: No Cardiovascular Problems: No Diabetes: No Diminished Hearing: No Genitourinary: No Implanted Vascular Access Dvce: No Medical other: Yes (PANCREATIS ) Musculoskeletal: No Neurologic: No Psychiatric: No Reproductive: No Respiratory: No Immunizations Current: No Seizures: No Thyroid Disease: No Ulcer: No ?: Not LMP: October : 0 Past Surgical History Abdominal Surgery: Yes () Other Surgery: Yes Social History Alcohol Use: No Tobacco Use: No Substance Use: No Allergies-Medications (Allergen,Severity, Reaction): Uncoded Allergies: FOAM IV TEGRADERM (Allergy, Severe, ITCHING/REDNESS, 11/21/11) Reported Meds & Prescriptions Reported Meds & Active Scripts Active No Active Prescriptions or Reported Medications Review of Systems Except as stated in HPI: all other systems reviewed are Neg General / Constitutional: No: Fever, Chills Gastrointestinal: Positive: Nausea, Abdominal Pain, No: Vomiting, Diarrhea Genitourinary: No: Urgency, Frequency, Dysuria Physical Exam Narrative GENERAL: Patient is awake and alert and in no acute distress. She is lying on the stretcher with a small baby. SKIN: Warm and dry. HEAD: Atraumatic. Normocephalic. EYES: Pupils equal and round. Extraocular movements are intact. ENT: No nasal bleeding or discharge. Mucous membranes pink and moist. NECK: Trachea midline. Neck is supple. CARDIOVASCULAR: Regular rate and rhythm. Heart sounds are normal. RESPIRATORY: No accessory muscle use. Lungs are clear. GASTROINTESTINAL: Abdomen soft. Epigastric tenderness. No guarding or rebound. Bowel sounds present. Nondistended. MUSCULOSKELETAL: No obvious deformities. No edema. NEUROLOGICAL: Awake and alert. No obvious cranial nerve deficits. Motor grossly within normal limits. Normal speech. PSYCHIATRIC: Appropriate mood and affect; insight and judgment normal. Data Data Last Documented VS Vital Signs Date Time Temp Pulse Resp B/P Pulse Ox O2 Delivery O2 Flow Rate FiO2 12/29/16 03:52 98 Room Air 12/29/16 03:00 98.1 77 16 124/68 Orders Complete Blood Count With Diff (12/29/16 03:41) Comprehensive Metabolic Panel (12/29/16 03:41) Lipase (12/29/16 03:41) Iv Access Insert/Monitor (12/29/16 03:41) Ecg Monitoring (12/29/16 03:41) Oximetry (12/29/16 03:41) Sodium Chloride 0.9% Flush (Ns Flush) (12/29/16 03:45) Ed Urine Pregnancytest Poc (12/29/16 03:41) Morphine Inj (Morphine Inj) (12/29/16 04:15) Ondansetron Inj (Zofran Inj) (12/29/16 04:15) Labs Laboratory Tests Test 12/29/16 03:55 White Blood Count 9.1 TH/MM3 Red Blood Count 4.03 MIL/MM3 Hemoglobin 11.8 GM/DL Hematocrit 34.9 % Mean Corpuscular Volume 86.6 FL Mean Corpuscular Hemoglobin 29.3 PG Mean Corpuscular Hemoglobin 33.9 % Concent Red Cell Distribution Width 15.0 % Platelet Count 419 TH/MM3 Mean Platelet Volume 8.8 FL Neutrophils (%) (Auto) 59.3 % Lymphocytes (%) (Auto) 31.5 % Monocytes (%) (Auto) 6.6 % Eosinophils (%) (Auto) 2.2 % Basophils (%) (Auto) 0.4 % Neutrophils # (Auto) 5.4 TH/MM3 Lymphocytes # (Auto) 2.9 TH/MM3 Monocytes # (Auto) 0.6 TH/MM3 Eosinophils # (Auto) 0.2 TH/MM3 Basophils # (Auto) 0.0 TH/MM3 CBC Comment DIFF FINAL Differential Comment Sodium Level 139 MEQ/L Potassium Level 4.0 MEQ/L Chloride Level 106 MEQ/L Carbon Dioxide Level 23.7 MEQ/L Anion Gap 9 MEQ/L Blood Urea Nitrogen 13 MG/DL Creatinine 0.54 MG/DL Estimat Glomerular Filtration 164 ML/MIN Rate Random Glucose 99 MG/DL Calcium Level 8.8 MG/DL Total Bilirubin 0.4 MG/DL Aspartate Amino Transf 19 U/L (AST/SGOT) Alanine Aminotransferase 35 U/L (ALT/SGPT) Alkaline Phosphatase 90 U/L Total Protein 8.0 GM/DL Albumin 3.6 GM/DL Lipase 108 U/L MDM Medical Decision Making Medical Screen Exam Complete: Yes Emergency Medical Condition: Yes Medical Record Reviewed: Yes (patient had an episode of pancreatitis in October. At that time showed a gallstone but no evidence of cholecystitis. Her lipase at presentation was 15,000.) Differential Diagnosis Differential diagnosis of abdominal pain includes but is not limited to gastritis, pancreatitis, hepatitis, gastroenteritis, gallbladder disease, constipation, urinary retention, UTI, peptic ulcer disease, diverticulitis or appendicitis Narrative Course Patient presents with epigastric abdominal pain. CBC & BMP Diagram 12/29/16 03:55 LFTs and lipase are normal. Diagnosis Primary Impression: Abdominal pain Qualified Code: R10.84 - Generalized abdominal pain Patient Instructions: Abdominal Pain (ED), General Instructions Scripts No Active Prescriptions or Reported Meds Disposition: 01 DISCHARGE HOME Condition: Stable Genna Machuca MD Dec 29, 2016 04:22
[2016-12-29 04:34] LABS: ALT (GPT) 35 U/L (10-53); ANION GAP 9 MEQ/L (5-15); AST (GOT) 19 U/L (15-37); BICARBONATE 23.7 MEQ/L (21.0-32.0); BLOOD UREA NITROGEN 13 MG/DL (7-18); CHLORIDE 106 MEQ/L (98-107); GLOMERULAR FILTRATION RATE 164 ML/MIN (>89); SODIUM (NA) 139 MEQ/L (136-145)
[2016-12-29 04:36] LABS: ALKALINE PHOSPHATASE 90 U/L (45-117); TOTAL BILIRUBIN ADULT 0.4 MG/DL (0.2-1.0)
[2016-12-29 04:55] VITALS: BP 121/78
== END 2016-12-29 05:05 | disposition home or self-care (01) ==
LOC: NEPC 02:55
DX: R10.84 Generalized abdominal pain (principal); R11.0 Nausea
CPT/HCPCS: 80053; 83690; 84703; 85025; 96374; 96375; 99284; J2270; J2405

== ENCOUNTER 2017-02-22 03:38 | Emergency (ER) | payer MEDICAID ==
[~2017-02-22] VITALS: Ht 152.4 cm; Wt 79.0 kg
[2017-02-22 03:41] VITALS: BP 132/64; PULSE 77; RESP 16; TEMP 98.5; O2SAT 99
[2017-02-22 05:02] LABS: AUTOMATED NEUTROPHIL # 5.9 TH/MM3 (1.8-7.7); BASOPHIL % 0.5 % (0.0-2.0); EOSINOPHIL # 0.4 TH/MM3 (0-0.4); EOSINOPHIL % 4.3 % (0.0-4.0); HEMATOCRIT 37.1 % (35.0-46.0); HEMO FLAGS DIFF FINAL; LYMPH % 29.1 % (9.0-44.0); MEAN CORPUSCULAR HEMOGLOBIN 30.1 PG (27.0-34.0); MEAN CORPUSCULAR HGB CONC 33.8 % (32.0-36.0); MONO % 7.7 % (0.0-8.0); NEUT % 58.4 % (16.0-70.0); PLATELET COUNT 347 TH/MM3 (150-450); RED BLOOD COUNT 4.17 MIL/MM3 (4.00-5.30); RED CELL DISTRIBUTION WIDTH 13.8 % (11.6-17.2); WHITE BLOOD COUNT 10.2 TH/MM3 (4.0-11.0)
--- NOTE | 2017-02-22 05:24 | PD ---
HPI Chief Complaint: Abdominal Pain Time Seen by Provider: 05:16 Travel History International Travel<30 days: No Contact w/Intl Traveler<30days: No Traveled to known affect area: No History of Present Illness HPI 26-year-old female with history of pancreatitis and cholelithiasis, presents to the ER today because she states that she has been having increased nausea, vomiting, and diarrhea over the last few days. She states that she had a 7 out of 10 up her abdominal pain. She states is now subsiding. She denies any fevers or any other symptoms. She is in the process of getting scheduled for surgical treatment with Dr. brennan. Modifying Factors: None Associated Signs & Symptoms: Nausea, vomiting, diarrhea, abdominal pain Risk Factors: History of pancreatitis, cholelithiasis PFSH Past Medical History Anemia: Yes (requires blood transfusion 2006) Cancer: No Cardiovascular Problems: No Diabetes: No Diminished Hearing: No Genitourinary: No Implanted Vascular Access Dvce: No Medical other: Yes (patient states she is supposed to have her gallbladder removed) Musculoskeletal: No Neurologic: No Psychiatric: No Reproductive: No Respiratory: No Immunizations Current: No Seizures: No Thyroid Disease: No Ulcer: No ?: Not LMP: 01/24/17 : 1 Para: 1 Past Surgical History Abdominal Surgery: Yes () Other Surgery: Yes Social History Alcohol Use: No Tobacco Use: No Substance Use: No Allergies-Medications (Allergen,Severity, Reaction): Uncoded Allergies: FOAM IV TEGRADERM (Allergy, Severe, ITCHING/REDNESS, 11/21/11) Reported Meds & Prescriptions Reported Meds & Active Scripts Active Reported Carafate Liq (Sucralfate) 1 Gm/10 Ml Susp 1 Gm PO QID on empty stomach Flagyl (Metronidazole) 500 Mg Tab 500 Mg PO TID Review of Systems Except as stated in HPI: all other systems reviewed are Neg Physical Exam Narrative GENERAL: Well-developed young -[place] female patient currently in mild distress. SKIN: Focused skin assessment warm/dry. HEAD: Atraumatic. Normocephalic. EYES: Pupils equal and round. No scleral icterus. No injection or drainage. ENT: No nasal bleeding or discharge. Mucous membranes pink and moist. NECK: Trachea midline. No JVD. CARDIOVASCULAR: Regular rate and rhythm. No murmur appreciated. RESPIRATORY: No accessory muscle use. Clear to auscultation. Breath sounds equal bilaterally. GASTROINTESTINAL: Abdomen soft, epigastric abdominal tenderness without guarding or rebound, nondistended. Hepatic and splenic margins not palpable. MUSCULOSKELETAL: No obvious deformities. No clubbing. No cyanosis. No edema. NEUROLOGICAL: Awake and alert. No obvious cranial nerve deficits. Motor grossly within normal limits. Normal speech. PSYCHIATRIC: Appropriate mood and affect; insight and judgment normal. Data Data Last Documented VS Vital Signs Date Time Temp Pulse Resp B/P Pulse Ox O2 Delivery O2 Flow Rate FiO2 02/22/17 03:41 98.5 77 16 132/64 99 Room Air Orders Complete Blood Count With Diff (02/22/17 04:44) Comprehensive Metabolic Panel (02/22/17 04:44) Urinalysis - C+S If Indicated (02/22/17 04:44) Ed Urine Pregnancytest Poc (02/22/17 04:44) Lipase (02/22/17 04:44) Sodium Chlor 0.9% 1000 Ml Inj (Ns 1000 M (02/22/17 05:30) Ondansetron Inj (Zofran Inj) (02/22/17 05:30) Morphine Inj (Morphine Inj) (02/22/17 05:30) Us Abdomen Gallbladder (02/22/17 05:24) Labs Laboratory Tests Test 02/22/17 04:30 White Blood Count 10.2 TH/MM3 Red Blood Count 4.17 MIL/MM3 Hemoglobin 12.5 GM/DL Hematocrit 37.1 % Mean Corpuscular Volume 89.0 FL Mean Corpuscular Hemoglobin 30.1 PG Mean Corpuscular Hemoglobin 33.8 % Concent Red Cell Distribution Width 13.8 % Platelet Count 347 TH/MM3 Mean Platelet Volume 9.1 FL Neutrophils (%) (Auto) 58.4 % Lymphocytes (%) (Auto) 29.1 % Monocytes (%) (Auto) 7.7 % Eosinophils (%) (Auto) 4.3 % Basophils (%) (Auto) 0.5 % Neutrophils # (Auto) 5.9 TH/MM3 Lymphocytes # (Auto) 3.0 TH/MM3 Monocytes # (Auto) 0.8 TH/MM3 Eosinophils # (Auto) 0.4 TH/MM3 Basophils # (Auto) 0.0 TH/MM3 CBC Comment DIFF FINAL Differential Comment Urine Color YELLOW Urine Turbidity CLEAR Urine pH 6.0 Urine Specific [place] 1.027 Urine Protein NEG mg/dL Urine Glucose (UA) NEG mg/dL Urine Ketones NEG mg/dL Urine Occult Blood NEG Urine Nitrite NEG Urine Bilirubin NEG Urine Urobilinogen LESS THAN 2.0 MG/DL Urine Leukocyte Esterase NEG Urine RBC 1 /hpf Urine WBC 1 /hpf Urine Squamous Epithelial 2 /hpf Cells Urine Bacteria RARE /hpf Urine Mucus FEW /lpf Microscopic Urinalysis Comment CULT NOT INDICATED Sodium Level 135 MEQ/L Potassium Level 3.6 MEQ/L Chloride Level 103 MEQ/L Carbon Dioxide Level 25.5 MEQ/L Anion Gap 7 MEQ/L Blood Urea Nitrogen 11 MG/DL Creatinine 0.58 MG/DL Estimat Glomerular Filtration 151 ML/MIN Rate Random Glucose 96 MG/DL Calcium Level 8.7 MG/DL Total Bilirubin 0.6 MG/DL Aspartate Amino Transf 11 U/L (AST/SGOT) Alanine Aminotransferase 18 U/L (ALT/SGPT) Alkaline Phosphatase 98 U/L Total Protein 8.1 GM/DL Albumin 3.6 GM/DL Lipase 119 U/L [facility] Medical Decision Making Medical Screen Exam Complete: Yes Emergency Medical Condition: Yes Medical Record Reviewed: Yes Interpretation(s) Laboratory Tests Test 02/22/17 04:30 Eosinophils (%) (Auto) 4.3 % (0.0-4.0) Urine Bacteria RARE /hpf (NONE) Urine Mucus FEW /lpf (OCC) Sodium Level 135 MEQ/L (136-145) Aspartate Amino Transf 11 U/L (15-37) (AST/SGOT) Differential Diagnosis Epigastric abdominal pain, nausea, vomiting, diarrheagastroenteritis versus pancreatitis versus cholecystitis Narrative Course Lab work did not show any significant leukocytosis or metabolic issues. Ultrasound was ordered for further evaluation of abdominal pain. Physician Communication Physician Communication Case is signed out to Dr. Middleton at 7 AM pending ultrasound. Disposition based on ultrasound. Diagnosis Primary Impression: Abdominal pain Condition: Stable Ebony Boyce MD Feb 22, 2017 05:24
[2017-02-22 05:30] LABS: ANION GAP 7 MEQ/L (5-15); AST (GOT) 11 U/L (15-37); BACTERIA, URINE RARE /hpf; BICARBONATE 25.5 MEQ/L (21.0-32.0); BLOOD UREA NITROGEN 11 MG/DL (7-18); BLOOD, URINE NEG (NEG); CHLORIDE 103 MEQ/L (98-107); COMMENT (UR) CULT NOT INDICATED; CULTURE IF INDICATED CULT NOT INDICATED; GLOMERULAR FILTRATION RATE 151 ML/MIN (>89); GLUCOSE,URINE NEG (NEG); KETONE, URINE NEG (NEG); MUCUS URINE FEW /lpf (OCC); NITRITE,URINE NEG (NEG); POTASSIUM 3.6 MEQ/L (3.5-5.1); SODIUM (NA) 135 MEQ/L (136-145); SQUAMOUS EPITHELIAL CELL URINE 2 /hpf (0-5); URINE COLOR YELLOW (YELLW/STRAW)
[2017-02-22] MEDS ORDERED: SODIUM CHLOR 0.9% 1000 ML INJ 1,000 ML IV ONE (05:30)
[2017-02-22] MEDS ORDERED: MORPHINE SULFATE 4 MG/ML INJ IV PUSH ONE (05:30)
[2017-02-22] MEDS ORDERED: ONDANSETRON HCL 4 MG/2 ML VIAL IV PUSH ONE (05:30)
[2017-02-22 05:31] LABS: ALT (GPT) 18 U/L (10-53)
[2017-02-22 05:33] LABS: ALKALINE PHOSPHATASE 98 U/L (45-117); TOTAL BILIRUBIN ADULT 0.6 MG/DL (0.2-1.0)
[2017-02-22] MEDS ORDERED: CARA1SUS3 PO (06:53)
[2017-02-22] MEDS ORDERED: METR-1 PO (06:53)
[2017-02-22 07:03] VITALS: BP 119/57; PULSE 61; RESP 18; O2SAT 98
--- NOTE | 2017-02-22 07:58 | RADRPT ---
EXAM DATE/TIME: 02/22/2017 06:32 [facility] COMPARISON: US ABDOMEN - GALLBLADDER, October 29, 2016, 9:01. INDICATIONS : Nausea and Vomiting. MEDICAL HISTORY : . Cholelithiasis. Pancreatitis. Blood transfusion. Anemia. SURGICAL HISTORY : section. ENCOUNTER: Subsequent ACUITY: 3 days PAIN SCORE: 3/10 LOCATION: Right upper quadrant MEASUREMENTS: LIVER: 16.6 cm length COMMON DUCT: 3 mm RIGHT KIDNEY: 10.8 x 5.8 x 4.8 cm FINDINGS: LIVER: Normal echotexture without focal lesion or ductal dilatation. COMMON DUCT: No intraluminal mass or stone visualized. GALLBLADDER: There is a stone in the neck of the gallbladder without gallbladder wall thickening or other ancillar y signs of cholecystitis. PANCREAS: The visualized portions are within normal limits. RIGHT KIDNEY: No evidence of hydronephrosis, stone, or mass. CONCLUSION: Stone neck of the gallbladder as described above.. Kev Holland MD FACR on February 22, 2017 at 7:56 Board Certified Radiologist. This report was verified electronically.
--- NOTE | 2017-02-22 08:38 | PD ---
Data Data Last Documented VS Vital Signs Date Time Temp Pulse Resp B/P Pulse Ox O2 Delivery O2 Flow Rate FiO2 02/22/17 07:03 61 18 119/57 98 Room Air 02/22/17 03:41 98.5 Orders Complete Blood Count With Diff (02/22/17 04:44) Comprehensive Metabolic Panel (02/22/17 04:44) Urinalysis - C+S If Indicated (02/22/17 04:44) Ed Urine Pregnancytest Poc (02/22/17 04:44) Lipase (02/22/17 04:44) Sodium Chlor 0.9% 1000 Ml Inj (Ns 1000 M (02/22/17 05:30) Ondansetron Inj (Zofran Inj) (02/22/17 05:30) Morphine Inj (Morphine Inj) (02/22/17 05:30) Us Abdomen Gallbladder (02/22/17 05:24) Labs Laboratory Tests Test 02/22/17 04:30 White Blood Count 10.2 TH/MM3 Red Blood Count 4.17 MIL/MM3 Hemoglobin 12.5 GM/DL Hematocrit 37.1 % Mean Corpuscular Volume 89.0 FL Mean Corpuscular Hemoglobin 30.1 PG Mean Corpuscular Hemoglobin 33.8 % Concent Red Cell Distribution Width 13.8 % Platelet Count 347 TH/MM3 Mean Platelet Volume 9.1 FL Neutrophils (%) (Auto) 58.4 % Lymphocytes (%) (Auto) 29.1 % Monocytes (%) (Auto) 7.7 % Eosinophils (%) (Auto) 4.3 % Basophils (%) (Auto) 0.5 % Neutrophils # (Auto) 5.9 TH/MM3 Lymphocytes # (Auto) 3.0 TH/MM3 Monocytes # (Auto) 0.8 TH/MM3 Eosinophils # (Auto) 0.4 TH/MM3 Basophils # (Auto) 0.0 TH/MM3 CBC Comment DIFF FINAL Differential Comment Urine Color YELLOW Urine Turbidity CLEAR Urine pH 6.0 Urine Specific [place] 1.027 Urine Protein NEG mg/dL Urine Glucose (UA) NEG mg/dL Urine Ketones NEG mg/dL Urine Occult Blood NEG Urine Nitrite NEG Urine Bilirubin NEG Urine Urobilinogen LESS THAN 2.0 MG/DL Urine Leukocyte Esterase NEG Urine RBC 1 /hpf Urine WBC 1 /hpf Urine Squamous Epithelial 2 /hpf Cells Urine Bacteria RARE /hpf Urine Mucus FEW /lpf Microscopic Urinalysis Comment CULT NOT INDICATED Sodium Level 135 MEQ/L Potassium Level 3.6 MEQ/L Chloride Level 103 MEQ/L Carbon Dioxide Level 25.5 MEQ/L Anion Gap 7 MEQ/L Blood Urea Nitrogen 11 MG/DL Creatinine 0.58 MG/DL Estimat Glomerular Filtration 151 ML/MIN Rate Random Glucose 96 MG/DL Calcium Level 8.7 MG/DL Total Bilirubin 0.6 MG/DL Aspartate Amino Transf 11 U/L (AST/SGOT) Alanine Aminotransferase 18 U/L (ALT/SGPT) Alkaline Phosphatase 98 U/L Total Protein 8.1 GM/DL Albumin 3.6 GM/DL Lipase 119 U/L [facility] Medical Record Reviewed: Yes Supervised Visit with DAVI: No Narrative Course CBC & BMP Diagram 02/22/17 04:30 LFTs and Lipase normal Last Impressions Gall Bladder Ultrasound 02/22/17 0524 Signed Impressions: Service Date/Time: Friday, February 22, 2017 06:32 - CONCLUSION: Stone neck of the gallbladder as described above.. Kev Holland MD FACR Patient reassessed at about 8:15 AM. At that time she has been resting comfortably. There is tenderness in the right upper quadrant with inspiration consistent with Contreras sign. Her workup today is recently reveals a stone in the neck of the gallbladder however no other ancillary radiologic or laboratory finding consistent with acute cholecystitis. This case was discussed with Dr. Robison, who incidentally is the general surgeon with which the patient is in the process of establishing follow-up, and he will see the patient at the bedside here. 918: Dr Robison at bedside Pt to be discharge home. Dr Robison wrote scripts for the patient (cipro and norco) and she will undergo cholecystectomy this week. Diagnosis Primary Impression: Abdominal pain Qualified Code: R10.11 - Right upper quadrant abdominal pain Additional Impressions: Cholelithiasis Qualified Code: K80.20 - Calculus of gallbladder without cholecystitis without obstruction Biliary colic Referrals: Petros Robison MD call for appointment Additional Instruction: PLEASE RETURN TO ER IF YOU DEVELOP FEVER, CONTINUOUS VOMITING, SEVERE ABDOMINAL PAIN OR IF PER YOUR DISCRETION YOU BELIEVE IT IS NECESSARY. PLEASE FOLLOW UP WITH DR ROBISON DISCUSSED. PLEASE DO NOT DRIVE OR WORK AFTER TAKING NORCO. IT IS BEST TO AVOID NORCO WHILE YOU ARE CARING FOR YOUR BABY. You have a choice when it comes to health care, and we are glad that you chose [facility]. Hopefully, we have met your expectations on today's visit. You are welcome to return to [facility] at any time, as we are committed to meeting the health care needs of our community. Med/Other Pt SpecificInfo: Prescription(s) given (writtent by Dr Robison ) Disposition: 01 DISCHARGE HOME Condition: Santino Ruano MD Feb 22, 2017 08:38
--- NOTE | 2017-02-23 05:16 | MB ---
cc: KIMVANESSAJOSS DATE OF CONSULTATION: 02/22/2017 REQUESTING PHYSICIAN: Dr. Middleton, ER physician REASON FOR CONSULTATION Cholelithiasis. HISTORY OF PRESENT ILLNESS: The patient a 26-year-old -Congolese female who presented to [facility] with recurrent severe right upper quadrant pain. The patient has a previous documented history of cholelithiasis with previous ER visitation where she was diagnosed with symptomatic cholelithiasis. The patient was working with her primary care doctor to get a referral through our surgery and she developed recurrent right upper quadrant pain last night. She states the pain is similar to her previous presentation. The patient denies any new symptoms. The patient upon evaluation in the emergency department was found to have normal white blood cell count and ultrasound showing right upper quadrant gallstone within the neck of the gallbladder. General surgery was asked to evaluate the patient due to her recurrent pain. REVIEW OF SYSTEMS: A 12 point review of systems was conducted with the patient and is negative except for the pertinent positives mentioned above in the history of present illness. PAST MEDICAL HISTORY: five months. Cholelithiasis as above. PREVIOUS SURGERIES ALLERGIES: FOAM IV TEGADERM SOCIAL HISTORY The patient denies alcohol, tobacco or drug. MEDICATIONS: 1. Flagyl 2. Carafate. FAMILY HISTORY Noncontributory. PHYSICAL EXAMINATION Vital signs: Temperature 98.5 degrees, pulse 77, respiratory rate 16, blood pressure 132/64, O2 saturation 99% on room air. GENERAL: The patient is a well-developed, well-nourished -Congolese female in no acute distress. Head: Normocephalic, atraumatic. Pupils are round, reactive to light and accommodation. Sclerae is anicteric. Mucous membranes are moist. Neck is supple. No JVD. Trachea is midline. Breath sounds are present bilaterally. Nonlabored breathing pattern. Heart: Regular rate and rhythm. Abdomen: Soft. Mildly tender in the right upper quadrant subjectively without rebound tenderness or peritonitis. No hernias. Normal bowel sounds. No ascites. No organomegaly. Extremities: No clubbing, cyanosis or edema. Back: No CVA tenderness. Neurologic: Patient is awake, alert, orient x3. Nonfocal peripheral exam. Cranial nerves II-XII are grossly intact. ASSESSMENT/PLAN The patient is a 26-year-old female with symptomatic cholelithiasis, recurrent. The patient's pain is currently controlled. I discussed with the patient options of admission to the hospital due to her refractory pain versus discharge home with pain medications and extremely low fat, mainly liquid diet, close outpatient follow up and elective cholecystectomy. She chose to follow up with outpatient cholecystectomy and can be discharged from the emergency department. The patient will follow up with my office on Friday and obtain surgery time. The patient will return to the emergency department for any recurrent symptoms. MD MICH EldridgeG/ISABEL /11:08 PM /4:51 AM
== END 2017-02-22 10:06 | disposition home or self-care (01) ==
LOC: NEPE 03:38
DX: K80.20 Calculus of gallbladder without cholecystitis without obstruction (principal); K80.50 Calculus of bile duct without cholangitis or cholecystitis without obstruction; K85.90 Acute pancreatitis without necrosis or infection, unspecified; D64.9 Anemia, unspecified; Z79.899 Other long term (current) drug therapy
CPT/HCPCS: 76705; 80053; 81001; 83690; 84703; 85025; 96361; 96374; 96375; 99285; J2270; J2405; J7030

== ENCOUNTER 2017-02-27 11:56 | Observation (INO) | payer MEDICAID ==
[~2017-02-27] VITALS: Ht 152.4 cm; Wt 80.0 kg
[2017-02-27] VITALS (7 sets, daily range): BP systolic 102–129; BP diastolic 52–67; PULSE 59–70; RESP 16–20; TEMP 97.8–98.8; O2SAT 99–100
[~2017-02-27 11:56] MED LIST changes: +CARA1SUS3 PO; -IBUP-232 PO; +METR-1 PO; -OXYC1TAB63 PO; -PRENCAP6 PO; -STOO100C PO
--- NOTE | 2017-02-27 12:06 | PD ---
Physical Exam Time Seen by Provider: 12:06 Narrative 26 y/o female here with abdominal pain. Seen a few days ago and dx with biliary cholic, seen by Dr. Linares in the ed but has not yet followed up. Vital signs reviewed. seen at triage desk. Awaiting bed placement. Data Data Last Documented VS Vital Signs Date Time Temp Pulse Resp B/P Pulse Ox O2 Delivery O2 Flow Rate FiO2 02/27/17 11:58 98.4 60 20 107/57 99 Room Air [facility] Medical Record Reviewed: Yes Supervised Visit with DAVI: Mich Uribe Feb 27, 2017 12:06
--- NOTE | 2017-02-27 12:44 | PD ---
HPI Chief Complaint: Abdominal Pain Time Seen by Provider: 12:31 Travel History International Travel<30 days: No Contact w/Intl Traveler<30days: No Traveled to known affect area: No History of Present Illness HPI 26yo F with PMH of cholelithiasis and recurrent RUQ abdominal presents to the ED with c/o epigastric pain that radiates to RUQ and right back. Pt was seen on 02/22/17 and states she has had pain since then and was suppose to follow up with Dr. Linares but did not. Associated with nausea but no vomiting. Denies any fever, chest pain, sob, dysuria, vaginal discharge. Pt is on her menstrual period. She was evaluated by Dr. Linares on 02/22/17 in the ED and was offered outpatient follow up or admission but chose outpatient follow up. Pt had US that showed gallstone within neck of gallbladder at the time. PFSH Past Medical History Anemia: Yes (requires blood transfusion 2006) Cancer: No Cardiovascular Problems: No Diabetes: No Diminished Hearing: No Gastrointestinal Disorders: Yes Genitourinary: No Implanted Vascular Access Dvce: No Musculoskeletal: No Neurologic: No Psychiatric: No Reproductive: No Respiratory: No Immunizations Current: No Seizures: No Thyroid Disease: No Ulcer: No Tetanus Vaccination: < 5 Years Influenza Vaccination: Yes ?: Not LMP: 02/27/17 : 1 Para: 1 Past Surgical History Abdominal Surgery: Yes () Section: Yes Other Surgery: Yes Social History Alcohol Use: No (pt denies) Tobacco Use: No Substance Use: No (pt denies ) Allergies-Medications (Allergen,Severity, Reaction): Uncoded Allergies: FOAM IV TEGRADERM (Allergy, Severe, ITCHING/REDNESS, 11/21/11) Reported Meds & Prescriptions Reported Meds & Active Scripts Active No Active Prescriptions or Reported Medications Review of Systems Except as stated in HPI: all other systems reviewed are Neg Physical Exam Narrative GENERAL: 26yo F in mild distress. SKIN: Focused skin assessment warm/dry. HEAD: Atraumatic. Normocephalic. CARDIOVASCULAR: Regular rate and rhythm. No murmur appreciated. RESPIRATORY: No accessory muscle use. Clear to auscultation. Breath sounds equal bilaterally. GASTROINTESTINAL: Abdomen soft, +TTP epigastric and RUQ pain. +Contreras's sign. BACK: Diffuse pain on the right side but not tender to palpation. MUSCULOSKELETAL: No obvious deformities. No clubbing. No cyanosis. No edema. NEUROLOGICAL: Awake and alert. No obvious cranial nerve deficits. Motor grossly within normal limits. Normal speech. PSYCHIATRIC: Appropriate mood and affect; insight and judgment normal. Data Data Last Documented VS Vital Signs Date Time Temp Pulse Resp B/P Pulse Ox O2 Delivery O2 Flow Rate FiO2 02/27/17 14:20 98.0 66 17 102/67 99 Room Air Orders Basic Metabolic Panel (Bmp) (02/27/17 12:39) Complete Blood Count With Diff (02/27/17 12:39) Lipase (02/27/17 12:39) Iv Access Insert/Monitor (02/27/17 12:39) Ecg Monitoring (02/27/17 12:39) Oximetry (02/27/17 12:39) Sodium Chloride 0.9% Flush (Ns Flush) (02/27/17 12:45) Us Abdomen Gallbladder (02/27/17 ) Ondansetron Inj (Zofran Inj) (02/27/17 12:45) Morphine Inj (Morphine Inj) (02/27/17 12:45) NPO (02/27/17 12:39) Hepatic Functional Panel (02/27/17 12:44) Urinalysis - C+S If Indicated (02/27/17 12:44) Ed Urine Pregnancytest Poc (02/27/17 12:44) Admit Order (Ed Use Only) (02/27/17 14:33) Labs Laboratory Tests Test 02/27/17 13:00 White Blood Count 7.2 TH/MM3 Red Blood Count 3.96 MIL/MM3 Hemoglobin 11.9 GM/DL Hematocrit 35.1 % Mean Corpuscular Volume 88.6 FL Mean Corpuscular Hemoglobin 30.1 PG Mean Corpuscular Hemoglobin 34.0 % Concent Red Cell Distribution Width 13.4 % Platelet Count 316 TH/MM3 Mean Platelet Volume 9.1 FL Neutrophils (%) (Auto) 54.6 % Lymphocytes (%) (Auto) 35.9 % Monocytes (%) (Auto) 6.4 % Eosinophils (%) (Auto) 2.6 % Basophils (%) (Auto) 0.5 % Neutrophils # (Auto) 4.0 TH/MM3 Lymphocytes # (Auto) 2.6 TH/MM3 Monocytes # (Auto) 0.5 TH/MM3 Eosinophils # (Auto) 0.2 TH/MM3 Basophils # (Auto) 0.0 TH/MM3 CBC Comment DIFF FINAL Differential Comment Urine Color YELLOW Urine Turbidity CLEAR Urine pH 6.0 Urine Specific [place] 1.030 Urine Protein TRACE mg/dL Urine Glucose (UA) NEG mg/dL Urine Ketones NEG mg/dL Urine Occult Blood MOD Urine Nitrite NEG Urine Bilirubin NEG Urine Urobilinogen LESS THAN 2.0 MG/DL Urine Leukocyte Esterase NEG Urine RBC /hpf Urine WBC 1 /hpf Urine Squamous Epithelial <1 /hpf Cells Urine Mucus FEW /lpf Microscopic Urinalysis Comment CULT NOT INDICATED Sodium Level 137 MEQ/L Potassium Level 3.9 MEQ/L Chloride Level 104 MEQ/L Carbon Dioxide Level 27.7 MEQ/L Anion Gap 5 MEQ/L Blood Urea Nitrogen 12 MG/DL Creatinine 0.60 MG/DL Estimat Glomerular Filtration 145 ML/MIN Rate Random Glucose 100 MG/DL Calcium Level 9.1 MG/DL Total Bilirubin 0.4 MG/DL Direct Bilirubin 0.1 MG/DL Indirect Bilirubin 0.3 MG/DL Aspartate Amino Transf 8 U/L (AST/SGOT) Alanine Aminotransferase 22 U/L (ALT/SGPT) Alkaline Phosphatase 82 U/L Total Protein 7.9 GM/DL Albumin 3.8 GM/DL Lipase 103 U/L [facility] Medical Decision Making Medical Screen Exam Complete: Yes Emergency Medical Condition: Yes Interpretation(s) Laboratory Tests Test 02/27/17 13:00 White Blood Count 7.2 TH/MM3 (4.0-11.0) Red Blood Count 3.96 MIL/MM3 (4.00-5.30) Hemoglobin 11.9 GM/DL (11.6-15.3) Hematocrit 35.1 % (35.0-46.0) Mean Corpuscular Volume 88.6 FL (80.0-100.0) Mean Corpuscular Hemoglobin 30.1 PG (27.0-34.0) Mean Corpuscular Hemoglobin 34.0 % Concent (32.0-36.0) Red Cell Distribution Width 13.4 % (11.6-17.2) Platelet Count 316 TH/MM3 (150-450) Mean Platelet Volume 9.1 FL (7.0-11.0) Neutrophils (%) (Auto) 54.6 % (16.0-70.0) Lymphocytes (%) (Auto) 35.9 % (9.0-44.0) Monocytes (%) (Auto) 6.4 % (0.0-8.0) Eosinophils (%) (Auto) 2.6 % (0.0-4.0) Basophils (%) (Auto) 0.5 % (0.0-2.0) Neutrophils # (Auto) 4.0 TH/MM3 (1.8-7.7) Lymphocytes # (Auto) 2.6 TH/MM3 (1.0-4.8) Monocytes # (Auto) 0.5 TH/MM3 (0-0.9) Eosinophils # (Auto) 0.2 TH/MM3 (0-0.4) Basophils # (Auto) 0.0 TH/MM3 (0-0.2) CBC Comment DIFF FINAL Differential Comment Urine Color YELLOW (YELLW/STRAW) Urine Turbidity CLEAR (CLEAR) Urine pH 6.0 (5.0-8.5) Urine Specific [place] 1.030 (1.002-1.035) Urine Protein TRACE mg/dL (NEG-TRACE) Urine Glucose (UA) NEG mg/dL (NEG) Urine Ketones NEG mg/dL (NEG) Urine Occult Blood MOD (NEG) Urine Nitrite NEG (NEG) Urine Bilirubin NEG (NEG) Urine Urobilinogen LESS THAN 2.0 MG/DL (LESS THAN 2.0) Urine Leukocyte Esterase NEG (NEG) Urine RBC /hpf (0-3) Urine WBC 1 /hpf (0-5) Urine Squamous Epithelial <1 /hpf (0-5) Cells Urine Mucus FEW /lpf (OCC) Microscopic Urinalysis Comment CULT NOT INDICATED Sodium Level 137 MEQ/L (136-145) Potassium Level 3.9 MEQ/L (3.5-5.1) Chloride Level 104 MEQ/L (98-107) Carbon Dioxide Level 27.7 MEQ/L (21.0-32.0) Anion Gap 5 MEQ/L (5-15) Blood Urea Nitrogen 12 MG/DL (7-18) Creatinine 0.60 MG/DL (0.50-1.00) Estimat Glomerular Filtration 145 ML/MIN Rate (>89) Random Glucose 100 MG/DL (74-106) Calcium Level 9.1 MG/DL (8.5-10.1) Total Bilirubin 0.4 MG/DL (0.2-1.0) Direct Bilirubin 0.1 MG/DL (0.0-0.2) Indirect Bilirubin 0.3 MG/DL (0.0-0.8) Aspartate Amino Transf 8 U/L (15-37) (AST/SGOT) Alanine Aminotransferase 22 U/L (10-53) (ALT/SGPT) Alkaline Phosphatase 82 U/L (45-117) Total Protein 7.9 GM/DL (6.4-8.2) Albumin 3.8 GM/DL (3.4-5.0) Lipase 103 U/L (73-393) Last Impressions Gall Bladder Ultrasound 02/27/17 0000 Signed Impressions: Service Date/Time: February 13:00 - CONCLUSION: 1. Multiple gallstones measuring up to about 1 cm in diameter. No biliary ductal dilatation. No free fluid. Bradley Montano MD Differential Diagnosis Acute cholecystitis vs. biliary colic vs. pancreatitis Narrative Course 26yo F with RUQ pain and nausea. Pt has seen Dr. Linares in the ED on 02/22 and is suppose to follow up as outpatient but has not. Labs reviewed, no leukocytosis. Normal liver enzymes and lipase. UA negative. US gallbladder showed multiple gallstones up to 1cm in diameter. No biliary ductal dilatation. No fee fluid. Discussed with Dr. Linares and accepted to his service. Pt is to be NPO now. Pt agrees with plan. Diagnosis Primary Impression: Biliary colic Admitting Information Admitting Physician Requests: Observation Scripts No Active Prescriptions or Reported Meds Isabel Canas DO Feb 27, 2017 12:44
[2017-02-27] MEDS ORDERED: SODIUM CHLORIDE 0.9% FLUSH 10 ML FLUSH IV FLUSH PRN ×2 (12:45→15:00)
[2017-02-27] MEDS ORDERED: ONDANSETRON HCL 4 MG/2 ML VIAL IV PUSH ONE (12:45)
[2017-02-27] MEDS ORDERED: MORPHINE SULFATE 4 MG/ML INJ IV PUSH ONE (12:45)
[2017-02-27 13:34] LABS: BASOPHIL % 0.5 % (0.0-2.0); EOSINOPHIL # 0.2 TH/MM3 (0-0.4); EOSINOPHIL % 2.6 % (0.0-4.0); HEMATOCRIT 35.1 % (35.0-46.0); HEMO FLAGS DIFF FINAL; LYMPH % 35.9 % (9.0-44.0); LYMPHOCYTE # 2.6 TH/MM3 (1.0-4.8); MEAN CELL VOLUME 88.6 FL (80.0-100.0); MEAN CORPUSCULAR HEMOGLOBIN 30.1 PG (27.0-34.0); MONO % 6.4 % (0.0-8.0); NEUT % 54.6 % (16.0-70.0); PLATELET COUNT 316 TH/MM3 (150-450); RED BLOOD COUNT 3.96 MIL/MM3 (4.00-5.30); RED CELL DISTRIBUTION WIDTH 13.4 % (11.6-17.2); WHITE BLOOD COUNT 7.2 TH/MM3 (4.0-11.0)
[2017-02-27 13:40] LABS: BLOOD, URINE MOD (NEG); COMMENT (UR) CULT NOT INDICATED; CULTURE IF INDICATED CULT NOT INDICATED; GLUCOSE,URINE NEG (NEG); KETONE, URINE NEG (NEG); MUCUS URINE FEW /lpf (OCC); NITRITE,URINE NEG (NEG); SQUAMOUS EPITHELIAL CELL URINE <1 /hpf (0-5); URINE COLOR YELLOW (YELLW/STRAW)
--- NOTE | 2017-02-27 13:46 | RADRPT ---
EXAM DATE/TIME: 02/27/2017 13:00 [place] COMPARISON: No previous studies available for comparison. INDICATIONS : Right upper quadrant pain. MEDICAL HISTORY : Cholelithiasis. Epigastic pain. Anemia. SURGICAL HISTORY : section. ENCOUNTER: Initial ACUITY: 1 day PAIN SCORE: 10/10 LOCATION: Right upper quadrant MEASUREMENTS: LIVER: 16.0 cm length COMMON DUCT: 3 mm RIGHT KIDNEY: 10.8 x 5.4 x 4.8 cm FINDINGS: LIVER: Normal echotexture without focal lesion or ductal dilatation. COMMON DUCT: No intraluminal mass or stone visualized. GALLBLADDER: Multiple gallstones present. PANCREAS: The visualized portions are within normal limits. RIGHT KIDNEY: No evidence of hydronephrosis, stone, or mass. CONCLUSION: 1. Multiple gallstones measuring up to about 1 cm in diameter. No biliary ductal dilatation. No free fluid. Bradley Montano MD on February 27, 2017 at 13:41 Board Certified Radiologist. This report was verified electronically.
[2017-02-27 13:48] LABS: BICARBONATE 27.7 MEQ/L (21.0-32.0); POTASSIUM 3.9 MEQ/L (3.5-5.1)
[2017-02-27 13:51] LABS: INDIRECT BILIRUBIN 0.3 MG/DL (0.0-0.8); TOTAL BILIRUBIN ADULT 0.4 MG/DL (0.2-1.0)
[2017-02-27] MEDS: PIPERACIL-TAZO 3.375 GM PREMIX 50 ML IV SCH (15:03)
--- NOTE | 2017-02-27 15:06 | HHI.HP ---
cc: Petros Linares MD HPI Service General Surgery Primary Care Physician Evita Ferguson MD Admission Diagnosis Biliary colic Chief Complaint: Abdominal pain History of Present Illness This is a 26 year old female who presents to [facility] for RIGHT upper quadrant abdominal pain. The patient has several admissions with radiographic evidence of cholelithiasis. The patient arrives today with a normal white count and ultrasound showing evidence of cholelithiasis. A General Surgery admission has been requested for cholelithiasis and laparoscopic cholecystectomy during this admission. Review of Systems Constitutional: COMPLAINS OF: Change in appetite, DENIES: Fatigue Endocrine: DENIES: Polydipsia, Polyuria, Polyphagia Eyes: DENIES: Diplopia Ears, nose, mouth, throat: DENIES: Hearing loss Respiratory: DENIES: Apneas Cardiovascular: DENIES: Chest pain Gastrointestinal: COMPLAINS OF: Abdominal pain, DENIES: Diarrhea, Nausea, Vomiting Genitourinary: DENIES: Urinary frequency Musculoskeletal: DENIES: Joint pain Integumentary: DENIES: Abnormal pigmentation Hematologic/lymphatic: DENIES: Bruising Immunologic/allergic: DENIES: Eczema Neurologic: DENIES: Headache, Localized weakness Psychiatric: DENIES: Mood changes, Depression Past Family Social History Past Medical History Cholelithiasis Past Surgical History Cesarian section Reported Medications Flagyl Carafate Allergies: Uncoded Allergies: FOAM IV TEGRADERM (Allergy, Severe, ITCHING/REDNESS, 11/21/11) Active Ordered Medications Current Medications Medications (Trade) Dose Ordered Sig/Natividad Route Start Time Stop Time Status Last Admin Sodium Chloride 2 ml 2 ml UNSCH PRN IV FLUSH 02/27/17 12:45 02/27/17 13:03 (Zosyn 3.375 Gm Premix) 50 ml @ 100 mls/hr Q8H IV 02/27/17 17:00 Family History Non contributory Social History Denies tobacco use Denies ETOH use Denies illicit drug use Physical Exam Vital Signs Vital Signs Date Time Temp Pulse Resp B/P Pulse Ox O2 Delivery O2 Flow Rate FiO2 02/27/17 13:08 16 02/27/17 13:00 17 99 Room Air 02/27/17 12:30 16 02/27/17 11:58 98.4 60 20 107/57 99 Room Air Physical Exam GENERAL: Very pleasant 26 year old female resting in bed in no acute distress. SKIN: Warm and dry. HEAD: Atraumatic. Normocephalic. EYES: Pupils equal and round. No scleral icterus. No injection or drainage. ENT: No nasal bleeding or discharge. Mucous membranes pink and moist. NECK: Trachea midline. CARDIOVASCULAR: Regular rate and rhythm. RESPIRATORY: No accessory muscle use. Clear to auscultation. Breath sounds equal bilaterally. GASTROINTESTINAL: Abdomen soft, tenderness in RUQ with palpation; transverse C- section scar well healed. MUSCULOSKELETAL: Extremities without clubbing, cyanosis, or edema. No obvious deformities. NEUROLOGICAL: Awake and alert. No obvious cranial nerve deficits. Motor grossly within normal limits. Five out of 5 muscle strength in the arms and legs. Normal speech. PSYCHIATRIC: Appropriate mood and affect; insight and judgment normal. Laboratory Laboratory Tests Test 02/27/17 13:00 White Blood Count 7.2 Red Blood Count 3.96 Hemoglobin 11.9 Hematocrit 35.1 Mean Corpuscular Volume 88.6 Mean Corpuscular Hemoglobin 30.1 Mean Corpuscular Hemoglobin 34.0 Concent Red Cell Distribution Width 13.4 Platelet Count 316 Mean Platelet Volume 9.1 Neutrophils (%) (Auto) 54.6 Lymphocytes (%) (Auto) 35.9 Monocytes (%) (Auto) 6.4 Eosinophils (%) (Auto) 2.6 Basophils (%) (Auto) 0.5 Neutrophils # (Auto) 4.0 Lymphocytes # (Auto) 2.6 Monocytes # (Auto) 0.5 Eosinophils # (Auto) 0.2 Basophils # (Auto) 0.0 CBC Comment DIFF FINAL Differential Comment Urine Color YELLOW Urine Turbidity CLEAR Urine pH 6.0 Urine Specific [place] 1.030 Urine Protein TRACE Urine Glucose (UA) NEG Urine Ketones NEG Urine Occult Blood MOD Urine Nitrite NEG Urine Bilirubin NEG Urine Urobilinogen LESS THAN 2.0 Urine Leukocyte Esterase NEG Urine RBC Urine WBC 1 Urine Squamous Epithelial <1 Cells Urine Mucus FEW Microscopic Urinalysis Comment CULT NOT INDICATED Sodium Level 137 Potassium Level 3.9 Chloride Level 104 Carbon Dioxide Level 27.7 Anion Gap 5 Blood Urea Nitrogen 12 Creatinine 0.60 Estimat Glomerular Filtration 145 Rate Random Glucose 100 Calcium Level 9.1 Total Bilirubin 0.4 Direct Bilirubin 0.1 Indirect Bilirubin 0.3 Aspartate Amino Transf 8 (AST/SGOT) Alanine Aminotransferase 22 (ALT/SGPT) Alkaline Phosphatase 82 Total Protein 7.9 Albumin 3.8 Lipase 103 Result Diagram: 02/27/17 1300 02/27/17 1300 Imaging Last 48 hours Impressions Gall Bladder Ultrasound 02/27/17 0000 Signed Impressions: Service Date/Time: February 13:00 - CONCLUSION: 1. Multiple gallstones measuring up to about 1 cm in diameter. No biliary ductal dilatation. No free fluid. Bradley Montano MD Assessment and Plan Assessment and Plan This is a 26 year old female with symptomatic cholelithiasis -Full liquids tonight; NPO after midnight -Obtain consents -Hold anticoagulation medications -Plan for OR tomorrow at [address] Linares -Thank you for this referral; we will continue to follow Discussed Condition With Dr. Linares Miss Bette Ng Feb 27, 2017 15:06 Petros Linares MD Feb 28, 2017 08:45
[2017-02-27] MEDS: SODIUM CHLOR 0.9% 1000 ML INJ 1,000 ML IV SCH ×2 (15:26→21:53)
[2017-02-27] MEDS ORDERED: METOCLOPRAMIDE HCL 10 MG/2 ML VIAL IV PRN (16:00)
[2017-02-27] MEDS ORDERED: ZOLPIDEM TARTRATE 5 MG TAB PO PRN (20:00)
[2017-02-27] MEDS: MORPHINE SULFATE 4 MG/ML INJ IV PUSH PRN (21:51)
[2017-02-27] MEDS: SODIUM CHLORIDE 0.9% FLUSH 10 ML FLUSH IV FLUSH SCH (21:51)
[2017-02-28] MEDS: PIPERACIL-TAZO 3.375 GM PREMIX 50 ML IV SCH ×2 (01:11→09:00)
[2017-02-28 04:04] VITALS: BP 114/71; PULSE 67; RESP 20; TEMP 98.8; O2SAT 100
[2017-02-28] MEDS: SODIUM CHLOR 0.9% 1000 ML INJ 1,000 ML IV SCH (06:28)
[2017-02-28] MEDS ORDERED: BUPIVACAINE/EPINEPHRINE 0.25% 50 ML VIAL ONE (06:43)
[2017-02-28] MEDS ORDERED: FAMOTIDINE 20 MG/2 ML VIAL ONE (06:46)
[2017-02-28] MEDS ORDERED: DEXAMETHASONE SOD PHOS 4 MG/ML VIAL ONE (06:46)
[2017-02-28] MEDS ORDERED: MIDAZOLAM HCL 2 MG/2 ML VIAL ONE (06:46)
[2017-02-28] MEDS ORDERED: ACETAMINOPHEN 1000 MG/100 ML VIAL IV ONE (06:49)
[2017-02-28] MEDS ORDERED: fentaNYL CITRATE 250 MCG/5 ML AMP ONE (06:49)
[2017-02-28] MEDS ORDERED: DO NOT ADM ANY ANTICOAGULANT DRUGS PRN (08:17)
[2017-02-28] MEDS ORDERED: ACETAMINOPHEN/HYDROcodone 325 MG/5 MG TAB PO PRN ×2 (08:30)
[2017-02-28] MEDS ORDERED: ONDANSETRON HCL 4 MG/2 ML VIAL IV PRN (08:30)
--- NOTE | 2017-02-28 08:53 | MP ---
cc: JOSS ROBISON DATE OF SURGERY 02/28/2017 PREOPERATIVE DIAGNOSIS Acute and chronic cholecystitis. POSTOPERATIVE DIAGNOSIS Acute and chronic cholecystitis. PROCEDURE Laparoscopic cholecystectomy ATTENDING SURGEON Joss Robison MD KAIAKO KOHANGA [employer] Medical student Mauricio Roman, MS-3 ANESTHESIA General and local anesthetic COMPLICATIONS None BLOOD LOSS Less than 10 cc. FINDINGS A single band of adhesion below the umbilicus was taken down sharply. Chronic and acute changes localized to the infundibulum of the gallbladder with an impacted stone in the neck of the gallbladder. INDICATIONS FOR PROCEDURE The patient is a 26-year-old female with a history of chronic cholecystitis and biliary colic associated with . The patient gave five months ago and has had increasing pain and more severe attacks recently. 24 hours ago, the patient experienced severe epigastric pain and presented to the emergency department. She underwent evaluation. This did show multiple gallstones in the gallbladder, as well as a gallstone impacted in the neck of the gallbladder. The patient has also had significant right upper quadrant tenderness and early acute cholecystitis was suspected by emergency room physician and surgery was consulted for further evaluation. The patient had previously been discharged from the emergency department multiple times with antibiotics for acute cholecystitis for outpatient follow up at her choice due to her caring for her 5-month-old child, however at this time, she states she would like to stay and have surgery as this pain was worse and she was concerned about complications related to not having surgery for her gallbladder disease. The risks, benefits, and alternatives to laparoscopic cholecystectomy were discussed with the patient in detail prior to the procedure and patient agreed to undergo the procedure. PROCEDURE The patient was taken to the operating room, placed in the supine position, placed under general endotracheal anesthesia. The patient's abdomen was prepped and draped in a sterile fashion. Time-out was performed. The abdomen was entered through a Chaves type technique below the umbilicus with a curvilinear incision. Local anesthetic was used at this site, as well as all sites. We directly entered the abdomen under visualization and placed a 10-mm trocar into the abdomen under direct visualization. We insufflated the abdomen and surveyed the abdomen. There was no evidence of any complication from our entry. Initially the gallbladder appeared normal with some chronic changes, although no acute changes of the dome. We placed a 5 mm trocar in the subxiphoid position and two 5 mm trocars in the right upper quadrant under direct visualization of the laparoscope. Once we retracted the gallbladder upward, we notice a significant acute and chronic inflammation associated with a large gallstone impacted in the neck of the gallbladder. We used a [place] dissector as well as the hook electrocautery to dissect out the triangle of [place]. This was done without difficulty and we obtained a critical view of safety. We then were able to dissect out the cystic duct and artery all the way into the joint at the gallbladder and placed two close proximal and one clip distal on the cystic duct and the cystic artery. We divided both of these structures were laparoscopic Endoshears. We used the hook electrocautery to take the gallbladder off the gallbladder fossa. The gallbladder was removed with the EndoCatch bag through the 10-mm umbilical port. We then were able to inspect the abdomen. The clips were intact. There was no evidence of any bile leak or bleeding. There was a single band adhesion down towards the pelvis possibly related to her previous umbilical hernia repair. This was causing very severe tenting of one loop of small intestine and this was taken down sharply with Endoshears by taking small amount of peritoneum off of the abdominal wall and dropping this down. There was no injury to the bowel or serosa. Then at this point time discontinued surgery by removing all the ports under visualization with the laparoscope and expressed pneumoperitoneum. We closed the 10 mm Chaves port with a [id number] 0 Vicryl suture. We closed the skin with 4-0 Monocryl and Dermabond. The patient was discontinued anesthesia and taken to the PACU in stable condition. The patient tolerated the procedure well. No apparent complications. All counts were correct. I was present and scrubbed for the entire procedure. MD MORENITA Eldridge/MILLI /8:19 AM /8:36 AM
[2017-02-28] MEDS: SODIUM CHLORIDE 0.9% FLUSH 10 ML FLUSH IV FLUSH SCH (09:00)
[2017-02-28] MEDS ORDERED: PANTOPRAZOLE SODIUM 40 MG VIAL IV SCH (09:00)
[2017-02-28 11:32] VITALS: BP 112/67; PULSE 62; RESP 16; TEMP 98.3; O2SAT 100
[2017-02-28] MEDS ORDERED: NEOSTIGMINE 3 MG/3 ML SYR IV ONE (12:00)
[2017-02-28] MEDS ORDERED: LACTATED RINGER'S 1000 ML INJ 1,000 ML IV ONE (12:00)
[2017-02-28] MEDS ORDERED: PROPOFOL 200 MG/20 ML AMP IV ONE (12:00)
[2017-02-28] MEDS ORDERED: ONDANSETRON HCL 4 MG/2 ML VIAL IV PUSH ONE (12:00)
[2017-02-28] MEDS ORDERED: ZOFR4TAB PO (12:05)
[2017-02-28] MEDS ORDERED: ONDANSETRON HCL 4 MG/2 ML VIAL IV PUSH PRN (12:15)
[2017-02-28] MEDS: MORPHINE SULFATE 4 MG/ML INJ IV PUSH PRN (12:24)
[2017-02-28 12:29] VITALS: RESP 16
== END 2017-02-28 13:35 | disposition home or self-care (01) ==
LOC: NEPD 11:56 → NEDA 14:34 → NEPHCDU 16:05 → HCIS 02-28 07:46 → NEPHCDU 02-28 08:13
PROVIDERS: ADMIT Surgery; ATTEND Surgery
PROC: 0FT44ZZ Resection of Gallbladder, Percutaneous Endoscopic Approach (ICD-10-PCS; principal; 2017-02-27)
DX: K80.10 Calculus of gallbladder with chronic cholecystitis without obstruction (principal)
CPT/HCPCS: 00790; 47562; 76705; 80048; 80076; 81001; 83690; 84703; 85025; 88304; 94150; 96361; 96365; 96375; 96376; 99285; G0378; J0131; J1100; J2250; J2270; J2405; J2543; J2710; J3010; J7030; J7120

== ENCOUNTER 2017-03-14 22:52 | Emergency (ER) | payer MEDICAID ==
[~2017-03-14] VITALS: Ht 152.4 cm; Wt 72.0 kg
[~2017-03-14 22:52] MED LIST changes: -CARA1SUS3 PO; -METR-1 PO; +ZOFR4TAB PO
[2017-03-14 22:55] VITALS: BP 121/59; PULSE 94; RESP 20; TEMP 98.7; O2SAT 98
[2017-03-14 23:17] VITALS: BP 108/57; PULSE 89; RESP 18; TEMP 99.1; O2SAT 98
[2017-03-15] MEDS ORDERED: SODIUM CHLOR 0.9% 1000 ML INJ 1,000 ML IV SCH (00:20)
[2017-03-15] MEDS ORDERED: SODIUM CHLORIDE 0.9% FLUSH 10 ML FLUSH IV FLUSH PRN (00:30)
[2017-03-15] MEDS ORDERED: ONDANSETRON HCL 4 MG/2 ML VIAL IVP ONE (00:30)
[2017-03-15] MEDS ORDERED: MORPHINE SULFATE 4 MG/ML INJ IV PUSH ONE (00:30)
[2017-03-15 00:56] LABS: AUTOMATED NEUTROPHIL # 12.9 TH/MM3 (1.8-7.7); BASOPHIL % 0.3 % (0.0-2.0); EOSINOPHIL # 0.1 TH/MM3 (0-0.4); EOSINOPHIL % 0.6 % (0.0-4.0); HEMATOCRIT 38.3 % (35.0-46.0); HEMO FLAGS DIFF FINAL; LYMPH % 6.1 % (9.0-44.0); LYMPHOCYTE # 0.9 TH/MM3 (1.0-4.8); MEAN CELL VOLUME 88.5 FL (80.0-100.0); MEAN CORPUSCULAR HEMOGLOBIN 29.6 PG (27.0-34.0); MEAN CORPUSCULAR HGB CONC 33.5 % (32.0-36.0); MONO % 4.7 % (0.0-8.0); NEUT % 88.3 % (16.0-70.0); PLATELET COUNT 460 TH/MM3 (150-450); RED BLOOD COUNT 4.33 MIL/MM3 (4.00-5.30); RED CELL DISTRIBUTION WIDTH 13.4 % (11.6-17.2); WHITE BLOOD COUNT 14.6 TH/MM3 (4.0-11.0)
[2017-03-15 01:10] LABS: ALKALINE PHOSPHATASE 112 U/L (45-117)
--- NOTE | 2017-03-15 01:11 | PD ---
HPI Chief Complaint: General Weakness Time Seen by Provider: 23:09 Travel History International Travel<30 days: No Contact w/Intl Traveler<30days: No Traveled to known affect area: No History of Present Illness HPI 26-year-old female came to the emergency room with history of sudden onset abdominal pain at 2 PM today. Patient says she just came out of work and noticed the severe abdominal pain. Since then she has been nauseous and vomited few times. Patient had cholecystectomy done 2 weeks ago in this hospital. She has Zofran at home but says that it doesn't work so she didn't bother taking it. Vital signs are stable. She says she is spotting a little especially since she has had the IUD in. [facility] Past Medical History Narrative Medical List of her past medical, surgical, social and family history as reviewed from the nursing note. Anemia: Yes (requires blood transfusion 2006) Blood Disorders: No Anxiety: No Depression: No Cancer: No Cardiovascular Problems: No Diabetes: No Diminished Hearing: No Endocrine: No Gastrointestinal Disorders: Yes Genitourinary: No Immune Disorder: No Implanted Vascular Access Dvce: No Musculoskeletal: No Neurologic: No Psychiatric: No Reproductive: No Respiratory: No Immunizations Current: No Seizures: No Thyroid Disease: No Ulcer: No ?: Not LMP: IRREG : 1 Para: 1 Past Surgical History Abdominal Surgery: Yes () Section: Yes Pacemaker: No Other Surgery: Yes Social History Alcohol Use: No (pt denies) Tobacco Use: No Substance Use: No Allergies-Medications (Allergen,Severity, Reaction): Uncoded Allergies: FOAM IV TEGRADERM (Allergy, Severe, ITCHING/REDNESS, 03/14/17) pt states it's the foam from the ekg leads not tegaderm Comments List of her allergies reviewed from the nursing note. Reported Meds & Prescriptions Reported Meds & Active Scripts Active Reglan (Metoclopramide HCl) 5 Mg Tab 5 Mg PO TIDAC Zofran (Ondansetron HCl) 4 Mg Tab 4 Mg PO Q6HR PRN Narrative Medication List of her home medications reviewed from the nursing note. Review of Systems Except as stated in HPI: all other systems reviewed are Neg Physical Exam Narrative GENERAL: Awake, alert, obese, moderate distress SKIN: Focused skin assessment warm/dry. HEAD: Atraumatic. Normocephalic. EYES: Pupils equal and round. No scleral icterus. No injection or drainage. ENT: No nasal bleeding or discharge. Mucous membranes pink and moist. NECK: Trachea midline. No JVD. CARDIOVASCULAR: Regular rate and rhythm. No murmur appreciated. RESPIRATORY: No accessory muscle use. Clear to auscultation. Breath sounds equal bilaterally. GASTROINTESTINAL: Abdomen soft, non-tender, nondistended. Hepatic and splenic margins not palpable. MUSCULOSKELETAL: No obvious deformities. No clubbing. No cyanosis. No edema. NEUROLOGICAL: Awake and alert. No obvious cranial nerve deficits. Motor grossly within normal limits. Normal speech. PSYCHIATRIC: Appropriate mood and affect; insight and judgment normal. Data Data Last Documented VS Orders Orders Complete Blood Count With Diff (03/15/17 00:20) Comprehensive Metabolic Panel (03/15/17 00:20) Lipase (03/15/17 00:20) Urinalysis - C+S If Indicated (03/15/17 00:20) Ct Abd/Pel W/O Iv Contrast (03/15/17 00:20) Iv Access Insert/Monitor (03/15/17 00:20) Ecg Monitoring (03/15/17 00:20) Oximetry (03/15/17 00:20) Morphine Inj (Morphine Inj) (03/15/17 00:30) Ondansetron Inj (Zofran Inj) (03/15/17 00:30) Sodium Chlor 0.9% 1000 Ml Inj (Ns 1000 M (03/15/17 00:20) Sodium Chloride 0.9% Flush (Ns Flush) (03/15/17 00:30) Labs Laboratory Tests Test 03/15/17 00:15 03/15/17 02:15 White Blood Count 14.6 TH/MM3 Red Blood Count 4.33 MIL/MM3 Hemoglobin 12.8 GM/DL Hematocrit 38.3 % Mean Corpuscular Volume 88.5 FL Mean Corpuscular Hemoglobin 29.6 PG Mean Corpuscular Hemoglobin Concent 33.5 % Red Cell Distribution Width 13.4 % Platelet Count 460 TH/MM3 Mean Platelet Volume 9.3 FL Neutrophils (%) (Auto) 88.3 % Lymphocytes (%) (Auto) 6.1 % Monocytes (%) (Auto) 4.7 % Eosinophils (%) (Auto) 0.6 % Basophils (%) (Auto) 0.3 % Neutrophils # (Auto) 12.9 TH/MM3 Lymphocytes # (Auto) 0.9 TH/MM3 Monocytes # (Auto) 0.7 TH/MM3 Eosinophils # (Auto) 0.1 TH/MM3 Basophils # (Auto) 0.0 TH/MM3 CBC Comment DIFF FINAL Differential Comment Blood Urea Nitrogen 9 MG/DL Creatinine 0.59 MG/DL Random Glucose 84 MG/DL Total Protein 9.0 GM/DL Albumin 4.2 GM/DL Calcium Level 9.4 MG/DL Alkaline Phosphatase 112 U/L Aspartate Amino Transf (AST/SGOT) 23 U/L Alanine Aminotransferase (ALT/SGPT) 19 U/L Total Bilirubin 1.0 MG/DL Sodium Level 137 MEQ/L Potassium Level 4.5 MEQ/L Chloride Level 104 MEQ/L Carbon Dioxide Level 23.6 MEQ/L Anion Gap 9 MEQ/L Estimat Glomerular Filtration Rate 148 ML/MIN Lipase 86 U/L Urine Color YELLOW Urine Turbidity CLEAR Urine pH 6.0 Urine Specific [place] 1.027 Urine Protein TRACE mg/dL Urine Glucose (UA) NEG mg/dL Urine Ketones 10 mg/dL Urine Occult Blood NEG Urine Nitrite NEG Urine Bilirubin NEG Urine Urobilinogen LESS THAN 2.0 MG/DL Urine Leukocyte Esterase NEG Urine RBC LESS THAN 1 /hpf Urine WBC 2 /hpf Urine Squamous Epithelial Cells <1 /hpf Urine White Blood Cell Casts 2 /lpf Urine Mucus FEW /lpf Microscopic Urinalysis Comment CATH-CULT NOT IND MDM Medical Decision Making Medical Screen Exam Complete: Yes Emergency Medical Condition: Yes Medical Record Reviewed: Yes Differential Diagnosis UTI, peritonitis, diverticulitis, appendicitis Narrative Course 1:[address] scan report is back and that's negative. Awaiting for the chemistry. CBC is within normal limit. Awaiting for UA as well. Patient was given pain medication and IV fluid. 3:17 AM UA is back and is within normal limit. I was told by the nurse that patient had a voluminous amount of vomit which was mostly undigested food. This was followed by a syncopal episode which in my opinion could've been a vasovagal episode. I went and reassessed her and she says she feels better after vomiting. However she says she frequently gets nauseous and Zofran doesn' t work. I'll give her prescription for Reglan. I've asked her to follow up with the primary care. Procedures EKG Prior to Arrival: No Diagnosis Primary Impression: Acute gastroenteritis Referrals: Primary Care Physician Additional Instructions: Please return to the ER if the condition worsens or any other new concerns. Otherwise follow-up with your primary care. Take the medication as per the prescription direction Med/Other Pt SpecificInfo: Prescription(s) given Scripts Metoclopramide (Reglan) 5 Mg Tab 5 MG PO TIDAC, #15 TAB 0 Refills Prov: Luis Enrique Zapata MD 03/15/17 Disposition: 01 DISCHARGE HOME Condition: Stable Luis Enrique Zapata MD Mar 15, 2017 01:11
--- NOTE | 2017-03-15 01:12 | RADRPT ---
EXAM DATE/TIME: 03/15/2017 00:47 [facility] COMPARISON: No previous studies available for comparison. INDICATIONS : Abdominal pain, back pain, and vomiting. ORAL CONTRAST: No oral contrast ingested. RADIATION DOSE: 9.96 CTDIvol (mGy) MEDICAL HISTORY : None SURGICAL HISTORY : Cholecystectomy. section. ENCOUNTER: Initial ACUITY: 1 day PAIN SCALE: 10/10 LOCATION: abdomen TECHNIQUE: Volumetric scanning of the abdomen and pelvis was performed. Using automated exposure control and ad justment of the mA and/or kV according to patient size, radiation dose was kept as low as reasonably achievable to obtain optimal diagnostic quality images. DICOM format image data is available electro nically for review and comparison. FINDINGS: LOWER LUNGS: The visualized lower lungs are clear. LIVER: Homogeneous density without lesion. There is no dilation of the biliary tree. No calcified gallston es. SPLEEN: Normal size without lesion. PANCREAS: Within normal limits. KIDNEYS: Normal in size and shape. There is no mass, stone, or hydronephrosis. ADRENAL GLANDS: Within normal limits. VASCULAR: There is no aortic aneurysm. BOWEL/MESENTERY: The stomach, small bowel, and colon demonstrate no acute abnormality. There is no free intraperitone al air or fluid. ABDOMINAL WALL: Within normal limits. RETROPERITONEUM: There is no lymphadenopathy. BLADDER: No wall thickening or mass. REPRODUCTIVE: Within normal limits. INGUINAL: There is no lymphadenopathy or hernia. MUSCULOSKELETAL: Within normal limits for patient age. CONCLUSION: 1. No acute findings. Intrauterine device present. Previous cholecystectomy. Bradley Montano MD on March 15, 2017 at 1:02 Board Certified Radiologist. This report was verified electronically.
[2017-03-15 01:13] LABS: ALT (GPT) 19 U/L (10-53); ANION GAP 9 MEQ/L (5-15); AST (GOT) 23 U/L (15-37); BICARBONATE 23.6 MEQ/L (21.0-32.0); BLOOD UREA NITROGEN 9 MG/DL (7-18); CHLORIDE 104 MEQ/L (98-107); GLOMERULAR FILTRATION RATE 148 ML/MIN (>89); POTASSIUM 4.5 MEQ/L (3.5-5.1); SODIUM (NA) 137 MEQ/L (136-145)
[2017-03-15 02:30] VITALS: O2SAT 98
[2017-03-15 02:58] LABS: BLOOD, URINE NEG (NEG); GLUCOSE,URINE NEG (NEG); KETONE, URINE 10 mg/dL (NEG); MUCUS URINE FEW /lpf (OCC); NITRITE,URINE NEG (NEG); SQUAMOUS EPITHELIAL CELL URINE <1 /hpf (0-5); URINE COLOR YELLOW (YELLW/STRAW); WHITE BLOOD CELL CAST, URINE 2 /lpf
[2017-03-15 02:59] LABS: COMMENT (UR) CATH-CULT NOT IND; CULTURE IF INDICATED CATH CULTURE NOT IND
[2017-03-15 03:08] VITALS: BP 117/78; PULSE 89; RESP 18; O2SAT 98
[2017-03-15] MEDS ORDERED: REGL5TAB PO (03:19)
== END 2017-03-15 05:28 | disposition home or self-care (01) ==
LOC: NEPE 22:52
DX: K52.9 Noninfective gastroenteritis and colitis, unspecified (principal)
CPT/HCPCS: 74176; 80053; 81001; 83690; 85025; 96361; 96374; 96375; 99285; J2270; J2405; J7030

== ENCOUNTER 2017-05-30 16:28 | Emergency (ER) | payer MEDICAID ==
[~2017-05-30] VITALS: Ht 154.9 cm; Wt 78.8 kg
[~2017-05-30 16:28] MED LIST changes: +REGL5TAB PO
[2017-05-30 16:38] VITALS: BP 120/61; PULSE 71; RESP 16; TEMP 98.6; O2SAT 98
--- NOTE | 2017-05-30 18:24 | RADRPT ---
EXAM DATE/TIME: 05/30/2017 18:06 [facility] COMPARISON: No previous studies available for comparison. INDICATIONS : Right foot pain post fall today MEDICAL HISTORY : None. SURGICAL HISTORY : None. ENCOUNTER: Initial ACUITY: 1 day PAIN SCORE: 10/10 LOCATION: Right lateral foot FINDINGS: Three view examination of the right foot demonstrates no soft tissue swelling, dislocation, or fractu re. The tarsal bones appear intact. The interphalangeal and metatarsophalangeal joints are intact. The calcaneus is intact. Bony mineralization is normal. CONCLUSION: Unremarkable examination of the right foot. Ventura Elaine MD on May 30, 2017 at 18:22 Board Certified Radiologist. This report was verified electronically.
[2017-05-30] MEDS ORDERED: MELO15TA20 PO (18:50)
--- NOTE | 2017-05-30 18:50 | PD ---
HPI Chief Complaint: Injury Time Seen by Provider: 17:35 Travel History International Travel<30 days: No Contact w/Intl Traveler<30days: No Traveled to known affect area: No History of Present Illness HPI 26-year-old female here with right foot pain status post twisting injury today. Patient reports pain within the midfoot that is nonradiating and constant. Worse with weightbearing. Slightly relieved with rest. No other injuries. PFSH Past Medical History Anemia: Yes (requires blood transfusion 2006) Blood Disorders: No Anxiety: No Depression: No Cancer: No Cardiovascular Problems: No Diabetes: No Diminished Hearing: No Endocrine: No Gastrointestinal Disorders: Yes Genitourinary: No Immune Disorder: No Implanted Vascular Access Dvce: No Musculoskeletal: No Neurologic: No Psychiatric: No Reproductive: No Respiratory: No Immunizations Current: No Seizures: No Thyroid Disease: No Ulcer: No ?: Not LMP: on control pill, no periods : 1 Para: 1 Past Surgical History Abdominal Surgery: Yes () Section: Yes Cholecystectomy: Yes Pacemaker: No Other Surgery: Yes Social History Alcohol Use: No (pt denies) Tobacco Use: No Substance Use: No Allergies-Medications (Allergen,Severity, Reaction): Uncoded Allergies: FOAM IV TEGRADERM (Allergy, Severe, ITCHING/REDNESS, 03/14/17) pt states it's the foam from the ekg leads not tegaderm Reported Meds & Prescriptions Reported Meds & Active Scripts Active Meloxicam 15 Mg Tab 15 Mg PO DAILY Reglan (Metoclopramide HCl) 5 Mg Tab 5 Mg PO TIDAC Review of Systems Except as stated in HPI: all other systems reviewed are Neg Physical Exam Narrative GENERAL: Well-nourished, well-developed patient. SKIN: Focused skin assessment warm/dry. HEAD: Normocephalic. Atraumatic EYES: No scleral icterus. No injection or drainage. NECK: Supple, trachea midline. No JVD or lymphadenopathy. CARDIOVASCULAR: Regular rate and rhythm without murmurs, gallops, or rubs. RESPIRATORY: Breath sounds equal bilaterally. No accessory muscle use. GASTROINTESTINAL: Abdomen soft, non-tender, nondistended. Right lower extremity : Tenderness over the dorsal aspect of the right foot. No deformity. 2+ distal pulses. Brisk cap refill. MUSCULOSKELETAL: No cyanosis, or edema. Data Data Last Documented VS Vital Signs Date Time Temp Pulse Resp B/P (MAP) Pulse Ox O2 Delivery O2 Flow Rate FiO2 05/30/17 19:19 05/30/17 16:38 98.6 71 16 98 Orders Orders Foot, Complete ([id number]) (05/30/17 ) Splint Or Brace Apply/Monitor (05/30/17 18:50) Crutches (05/30/17 19:38) MDM Medical Decision Making Medical Screen Exam Complete: Yes Emergency Medical Condition: Yes Differential Diagnosis Foot sprain, metatarsal fracture, ankle sprain, ankle fracture Narrative Course 26-year-old female here with right foot pain status post twisting injury. Extremities neurovascular intact. X-ray negative for fracture. Patient be treated for midfoot sprain Diagnosis Primary Impression: Foot sprain Qualified Codes: S93.601A - Unspecified sprain of right foot, initial encounter Referrals: [facility] Scripts Meloxicam (Meloxicam) 15 Mg Tab 15 MG PO DAILY for Arthritis Pain, #30 TAB 0 Refills Prov: Gail Mott 05/30/17 Disposition: 01 DISCHARGE HOME Condition: Stable Gail Mott May 30, 2017 18:50
== END 2017-05-30 19:21 | disposition home or self-care (01) ==
LOC: PHEFT 16:28
DX: S93.601A Unspecified sprain of right foot, initial encounter (principal); X50.1XXA Overexertion from prolonged static or awkward postures, initial encounter
CPT/HCPCS: 73630; 99283; E0113

== ENCOUNTER 2017-08-27 08:40 | Emergency (ER) | payer MEDICAID ==
[~2017-08-27] VITALS: Ht 152.4 cm; Wt 75.0 kg
[~2017-08-27 08:40] MED LIST changes: +MELO15TA20 PO; -ZOFR4TAB PO
[2017-08-27 08:41] VITALS: BP 114/60; PULSE 90; RESP 18; TEMP 99.1; O2SAT 100
--- NOTE | 2017-08-27 09:18 | PD ---
HPI Chief Complaint: ENT Complaint Time Seen by Provider: 09:04 Travel History International Travel<30 days: No Contact w/Intl Traveler<30days: No Traveled to known affect area: No History of Present Illness HPI 26-year-old female presents emergency department for evaluation of sore throat. She is coming by her [id number] child who is also been sick with febrile illness, she thinks that she is caught what he has. Symptoms for the past 2 days, associated with cough and some right sided lymph node pain. Denies any fevers, denies any difficulty swallowing. PFSH Past Medical History Anemia: Yes (requires blood transfusion 2006) Blood Disorders: No Anxiety: No Depression: No Cancer: No Cardiovascular Problems: No Diabetes: No Diminished Hearing: No Endocrine: No Gastrointestinal Disorders: Yes Genitourinary: No Immune Disorder: No Implanted Vascular Access Dvce: No Musculoskeletal: No Neurologic: No Psychiatric: No Reproductive: No Respiratory: No Immunizations Current: No Seizures: No Thyroid Disease: No Ulcer: No Tetanus Vaccination: < 5 Years Influenza Vaccination: No ?: Not LMP: mirena : 1 Para: 1 Past Surgical History Abdominal Surgery: Yes () Section: Yes Cholecystectomy: Yes Pacemaker: No Other Surgery: Yes Social History Alcohol Use: No (pt denies) Tobacco Use: No Substance Use: No Allergies-Medications (Allergen,Severity, Reaction): Uncoded Allergies: FOAM IV TEGRADERM (Allergy, Severe, ITCHING/REDNESS, 03/14/17) pt states it's the foam from the ekg leads not tegaderm Reported Meds & Prescriptions Reported Meds & Active Scripts Active No Active Prescriptions or Reported Medications Review of Systems Except as stated in HPI: all other systems reviewed are Neg Physical Exam Narrative GENERAL: Well-nourished, well-developed patient. Appears in no obvious distress. SKIN: Focused skin assessment warm/dry. HEAD: Normocephalic. EYES: No scleral icterus. No injection or drainage. ENT: TMs clear bilaterally, oropharynx shows mild erythema surrounding both tonsils, uvula midline, no tonsillar drainage, tonsils are 3+. NECK: Mildly tender on the right anterior side, no obvious swelling, no obvious lymphadenopathy., trachea midline. No JVD or lymphadenopathy. CARDIOVASCULAR: Regular rate and rhythm without murmurs, gallops, or rubs. RESPIRATORY: Breath sounds equal bilaterally. No accessory muscle use. GASTROINTESTINAL: Abdomen soft, non-tender, nondistended. MUSCULOSKELETAL: No cyanosis, or edema. BACK: Nontender without obvious deformity. No CVA tenderness. Data Data Last Documented VS Vital Signs Date Time Temp Pulse Resp B/P (MAP) Pulse Ox O2 Delivery O2 Flow Rate FiO2 08/27/17 10:24 08/27/17 08:41 99.1 90 18 100 Room Air Orders Orders Group A Rapid Strep Screen (08/27/17 09:18) Strep Culture (Group A) (08/27/17 09:21) Ed Discharge Order (08/27/17 10:19) MDM Medical Decision Making Medical Screen Exam Complete: Yes Emergency Medical Condition: Yes Differential Diagnosis URI, laryngitis, pneumonia unlikely, strep throat Narrative Course Patient roomed emerged permit, appears well and in obvious distress, symptoms consistent with a viral upper respiratory infection possibly strep throat but unlikely, rapid strep test negative. Discussed with her symptomatic management returned ED criteria. No indication for antibiotic Diagnosis Primary Impression: Viral URI with cough Patient Instructions: General Instructions, Upper Respiratory Infection (DC) Additional Instructions: Drink plenty of fluids, Tylenol or ibuprofen as needed for fever, there is no need for antibiotics. Scripts No Active Prescriptions or Reported Meds Disposition: 01 DISCHARGE HOME Condition: Stable Anthony Solorzano MD Aug 27, 2017 09:18
== END 2017-08-27 10:25 | disposition home or self-care (01) ==
LOC: NEPD 08:40
DX: J02.9 Acute pharyngitis, unspecified (principal)
CPT/HCPCS: 87081; 87880; 99283